=== PATIENT | male | born 1960 | race Two or more races ===

== ENCOUNTER 2025-01-16 13:28 | Inpatient (IN) | payer OTHER ==
[~2025-01-16] VITALS: Ht 165.1 cm; Wt 51.4 kg
[2025-01-16 14:14] LABS: Basophils # (auto) 0 10 ^3/uL (0-0.2); Basophils % (auto) 0.3 % (0.0-2.0); Eosinophils # (auto) 0 10 ^3/uL (0-0.8); Hematocrit 40.8 % (41.0-53.0); Hemoglobin 13.9 g/dL (13.5-17.5); Lymphocytes # (auto) 0.8 10 ^3/uL (0.4-5.4); Lymphocytes % (auto) 8.1 % (10.0-50.0); Mean Corpuscular Hemoglobin 29.6 pg (28.0-32.0); Monocytes # (auto) 0.5 10 ^3/uL (0-1.3); Monocytes % (auto) 4.9 % (0.0-12.0); Neutrophils # (auto) 8.1 10 ^3/uL (1.6-8.6); Neutrophils % (auto) 86.7 % (37.0-80.0); Platelet Count (auto) 157 10^3/uL (140-450); Red Blood Cells 4.68 10^6/uL (4.5-5.90); Red Cell Distribution Width 13.6 % (11.8-14.3); White Blood Cell 9.3 10^3/uL (4.4-10.8)
[2025-01-16 14:31] LABS: Alanine Aminotransferase 18 U/L (7-40); Alkaline Phosphatase 79 U/L (46-116); Anion Gap 10 (5-15); Aspartate Aminotransferase 19 U/L (13-40); BUN/Creatinine Ratio 10.9 (10.0-20.0); Blood Urea Nitrogen 10 mg/dL (9-23); Calcium 9.1 mg/dL (8.7-10.4); Carbon Dioxide 24 mmol/L (20-31); Chloride 104 mmol/L (98-107); Sodium 138 mmol/L (136-145); Total Protein 6.7 g/dL (5.7-8.2)
[2025-01-16 14:32] LABS: Albumin 4.2 g/dL (3.2-4.8); Bilirubin, Total 0.7 mg/dL (0.2-1.0); Glucose 145 mg/dL (74-106); Potassium 3.5 mmol/L (3.5-5.1)
[2025-01-16 14:33] LABS: Urine Bacteria None Seen /hpf (None Seen)
[2025-01-16 14:34] LABS: Lactic Acid w/Reflex 2.1 mmol/L (0.4-2.0)
[2025-01-16 14:40] LABS: Urine Blood TRACE /uL (Negative); Urine Clarity Clear (Clear); Urine Color Light-Yellow (Yellow); Urine Protein, UAD Negative (Negative); Urine Specific Gravity 1.008 (1.001-1.035); Urine Squamous Epithelial Cell None Seen /hpf (<5); Urine Urobilinogen Normal (Negative); Urine WBC < 1 /HPF (0-3); Urine pH 5.5 (5.0-9.0)
--- NOTE | 2025-01-16 14:40 | ED.PDOC ---
Altered Mental Status HPI Comments 64y M who presents to the ED for chief complaint of syncope. - pt states she had syncopal episode earlier this AM at approx 0500 this AM while using restroom -pt states he was straining during restroom and states he got up and suddenly felt lightheaded and had syncopal and remembers only waking up on floor - pt states now in the ED, he was dehydrated yesterday and had tea last night and had diarrhea episode at approx 12 AM today - pt int the ED, is ax0x04 and otherwise denies any other symptoms Past Medical history: denies Past Surgical history: hernia repair, catatacts, hand surgery Medications: denies Allergies: denies Social History: denies ETOH, denies tobacco use, denies drug use HPI: Poor Historian. No seizure-like activity, no postictal phase, no focal neurological deficits, denies specific area of pain. This never happened before. Patient ambulatory here in the ED. FLETCHER: Syncope and collapse Normal exam, left eye blindness Normal spine exam REVIEW OF SYSTEMS: CONSTITUTIONAL: Denies acute: fever, diaphoresis, chills, generalized weakness. HEAD: Denies acute: headache, photophobia Eyes: Denies acute: Double vision, vision loss, eye pain, eye discharge. EARS: Denies acute: tinnitus, hearing loss, ear discharge, ear pain, THROAT: Denies acute: sore throat, swelling, difficulty swallowing , pain with swallowing, change in voice. NECK: Denies acute: neck pain, neck swelling, stiff neck. HEART: Denies acute : chest pain, palpitations, LUNGS: Denies acute: SOB, wheezing, cough, hemoptysis ABDOMEN: Denies acute: abdominal pain, diarrhea, melena , hematemesis, hematochezia SKIN: Denies acute: rash, redness, lesions, itchiness. EXTREMITIES: Denies acute: calf pain, numbness, tingling, weakness, denies pain in extremity. Denies acute: Low back pain. Neuro: Denies acute: focal neurological deficit, motor or sensory focal neurological deficit, tremors, seizure like activity, confusion, change in mental status, loss of bowel or bladder function, cauda equina like symptoms. : Denies acute: dysuria, hematuria, flank pain, increase in urinary frequency. PSYCH: Denies acute: hallucination, suicidal ideation, homicidal ideation. PHYSICAL EXAM: General: --mild------acute distress, awake and alert. Head: normocephalic, atraumatic. Neck: supple, trachea is midline, no swelling. Cervical spine: Palpation of the posterior midline of the cervical spine reveals no focal swelling, erythema, focal tenderness to palpation. Patient has normal range of motion. Palpation of the remainder of the thoracic and lumbar spine reveals no focal tenderness to palpation or swelling. Throat: Normal phonation. Eyes:, no erythema, no purulent discharge, no proptosis, no icterus. Heart: regular rate, regular rhythm, no significant murmur appreciated. Lungs: no apparent respiratory distress, Able to speak in full sentences. No wheezing, no rhonchi, no crackles. No stridors Clear to auscultation bilaterally. Abdomen: non tender to palpation, non distended, soft, no guarding, no rebound, + bowel sounds. Neuro: Awake, Alert, oriented to name, self, situation, follows commands GCS=15. Speech is normal. Skin: no petechia, no purpura, no cyanosis, non-pale, not jaundice. Lower extremities: --no - Pitting edema no deformity, no focal swelling, no calf TTP. Makes eye contact. moves all four extremities. Face: no apparent facial droop. Ambulating in the ED independently. Stroke: finger to nose cerebellar testing is intact. No pronator drift. 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 No nystagmus. No nuchal rigidity, Kernig's sign, Brudzinski's sign, no meningeal signs. ED COURSE: Chief Complaint: Syncope Time Seen by MD: 13:40 Reviewed Notes: Medications, Allergies Allergies: Coded Allergies: NO KNOWN ALLERGIES (Unverified , 01/16/25) Home Meds No Active Prescriptions or Reported Meds Information Source: Patient Mode of Arrival: Ambulatory EKG EKG : Pulse Rate (adult): 74 [place]: Normal Cardiac Rhythm: NSR Block: None Hypertrophy: None ST: Normal Was a procedure done? Was a procedure done?: No Differential Diagnosis (ALOC) Differential Diagnosis: Dehydration, Hypoglycemia, DKA, Encephalopathy, Meningitis, Sepsis, Hypoxemia, Seizure, Closed Head Injury, CVA, Mass Lesion, SAH, Drug Overdose, ETOH Intoxication, Heart Failure, Renal Failure, Other X-Ray, Labs, Meds, VS Vital Signs Date Time Temp Pulse Resp B/P (MAP) Pulse Ox O2 Delivery O2 Flow Rate FiO2 01/16/25 19:55 98.1 77 18 97/57 (70) 98 98.1 01/16/25 16:09 99 18 95/56 (69) 100 01/16/25 16:09 74 18 100 Room Air 01/16/25 15:36 74 01/16/25 14:09 97.4 83 17 98/56 (70) 97 97.4 Lab Test 01/16/25 17:06 01/16/25 16:00 01/16/25 15:05 01/16/25 14:33 Range/Units Troponin I High Sensitivity < 3 L < 3 L </=54 ng/L Lactic Acid Level 1.5 0.4-2.0 mmol/L Urine Color Light-yellow Yellow Urine Clarity Clear Clear Urine pH 5.5 5.0-9.0 Urine Specific [place] 1.008 1.001-1.035 Urine Protein Negative Negative Urine Ketones Negative Negative Urine Blood Trace H Negative /uL Urine Nitrite Negative Negative Urine Bilirubin Negative Negative Urine Urobilinogen Normal Negative mg/dL Urine Leukocyte Esterase Negative Negative /uL Urine RBC <1 0 - 3 /hpf Urine Microscopic WBC < 1 0-3 /HPF Urine Squamous Epithelial Cells None seen <5 /hpf Urine Bacteria None seen None Seen /hpf Urine Glucose Normal Normal mg/dL Test 01/16/25 14:03 01/16/25 14:00 Range/Units White Blood Count 9.3 4.4-10.8 10^3/uL Red Blood Count 4.68 4.5-5.90 10^6/uL Hemoglobin 13.9 13.5-17.5 g/dL Hematocrit 40.8 L 41.0-53.0 % Mean Corpuscular Volume 87.0 80.0-100.0 fL Mean Corpuscular Hemoglobin 29.6 28.0-32.0 pg Mean Corpuscular Hemoglobin Concent 34.0 32.0-36.0 g/dL Red Cell Distribution Width 13.6 11.8-14.3 % Platelet Count 157 140-450 10^3/uL Mean Platelet Volume 7.9 6.9-10.8 fL Neutrophils (%) (Auto) 86.7 H 37.0-80.0 % Lymphocytes (%) (Auto) 8.1 L 10.0-50.0 % Monocytes (%) (Auto) 4.9 0.0-12.0 % Eosinophils (%) (Auto) 0.0 0.0-7.0 % Basophils (%) (Auto) 0.3 0.0-2.0 % Neutrophils # (Auto) 8.1 1.6-8.6 10 ^3/uL Lymphocytes # (Auto) 0.8 0.4-5.4 10 ^3/uL Monocytes # (Auto) 0.5 0-1.3 10 ^3/uL Eosinophils # (Auto) 0 0-0.8 10 ^3/uL Basophils # (Auto) 0 0-0.2 10 ^3/uL Nucleated Red Blood Cells 0.0 % Sodium Level 138 136-145 mmol/L Potassium Level 3.5 3.5-5.1 mmol/L Chloride Level 104 98-107 mmol/L Carbon Dioxide Level 24 20-31 mmol/L Anion Gap 10 5-15 Blood Urea Nitrogen 10 9-23 mg/dL Creatinine 0.92 0.700-1.30 mg/dL Glomerular Filtration Rate Calc 92 >90 mL/min BUN/Creatinine Ratio 10.9 10.0-20.0 Serum Glucose 145 H 74-106 mg/dL Lactic Acid Level 2.1 *H 0.4-2.0 mmol/L Calcium Level 9.1 8.7-10.4 mg/dL Total Bilirubin 0.7 0.2-1.0 mg/dL Aspartate Amino Transferase (AST) 19 13-40 U/L Alanine Aminotransferase (ALT) 18 7-40 U/L Alkaline Phosphatase 79 46-116 U/L Troponin I High Sensitivity < 3 L </=54 ng/L Total Protein 6.7 5.7-8.2 g/dL Albumin 4.2 3.2-4.8 g/dL Lipase 30 12-53 U/L Thyroid Stimulating Hormone (TSH) 0.89 0.55-4.78 uIU/mL POC Glucose 134 H 70-106 mg/dl [place] [address] Ph: [phone] DIAGNOSTIC IMAGING Diagnostic Imaging Report : [id number] Signed PATIENT: KALINA FLETCHER ACCT: [id number] UNIT: [id number] : 1960 LOC: ER ROOM / BED: / AGE / SEX: 64 / M ADM STATUS: REG ER SERVICE 1356 ORDERING PHYSICIAN: JESSE WALTERS DO PROCEDURE(s): HWOCT - HEAD WITHOUT CONTRAST REASON: syncope and collpase ORDER NUMBER(s): [id number], ACCESSION NUMBER(s): [id number] EXAM: CT HEAD WITHOUT CONTRAST INDICATION: syncope and collpase TECHNIQUE: CT of the head without intravenous contrast. Radiation Dose Information: CT Dose: CTDI volume is 50.46 mGy. Dose-length product is 809.12 mGy*cm The dose indicators for CT are the volume Computed Tomography (CT) Dose Index (CTDIvol) and the Dose Length Product (DLP), and are measured in units of mGy and mGy-cm, respectively. These indicators are not patient dose, but values generated from the CT scanner acquisition factors. The report includes radiation exposure data for exposures received during this examination. COMPARISON: None FINDINGS: There is no evidence of acute intracranial hemorrhage, extra-axial collection, mass effect, midline shift, herniation or hydrocephalus. The ventricles, sulci and cisterns are age appropriate. The crain-white differentiation is intact. Patchy periventricular and subcortical white matter hypoattenuation is nonspecific but may be related to small vessel ischemic disease. The visualized paranasal sinuses and mastoid air cells are clear. The surrounding soft tissues and osseous structures are unremarkable. IMPRESSION: 1. No acute intracranial abnormality. ATED BY: TESS TINAJERO Jr., DO DICTATED DATE/TIME: 01/16/251505 SIGNED BY: TESS TINAJERO Jr., DO SIGNED DATE/TIME: 01/16/25 150 CC: [address] [address] Ph: [phone] DIAGNOSTIC IMAGING Diagnostic Imaging Report : [id number] Signed PATIENT: KALINA FLETCHER ACCT: [id number] UNIT: [id number] : 1960 LOC: ER ROOM / BED: / AGE / SEX: 64 / M ADM STATUS: REG ER SERVICE 1349 ORDERING PHYSICIAN: JESSE WALTERS DO PROCEDURE(s): ABPL - CT AB PEL WO CON-NO ORAL OR IV REASON: abd pain n/v ORDER NUMBER(s): [id number], ACCESSION NUMBER(s): [id number] Exam: CT CT AB PEL WO CON-NO ORAL OR IV History: abd pain n/v Comparison Study: None TECHNIQUE: Multidetector CT of the abdomen was performed from lung bases to pubic symphysis. Imaging was performed without IV contrast. Axial, coronal and sagittal multiplanar reformats were obtained from the axial data set by the technologist. Radiation Dose Information: CT Dose: CTDI volume is 5.07 mGy. Dose-length product is 237.16 mGy*cm FINDINGS: Evaluation of solid organs is limited due to lack of intravenous contrast use. Findings: Lung Bases: No acute or significant lung base finding. Normal heart size. No pleural or pericardial effusion. Liver: The liver is normal in size. No focal lesions. Gallbladder and Biliary Tree: Unremarkable Spleen: Unremarkable Pancreas: The pancreas is grossly normal in appearance. Adrenal Glands: Unremarkable Kidneys: Kidneys are grossly normal without calculi or hydronephrosis. Bladder: Grossly unremarkable for degree of distention. Bowel: The stomach is grossly normal in appearance. Small bowel and colon are normal in caliber and distribution. The appendix is not visualized; however, no secondary findings of acute appendicitis identified. Ascites: Absent Lymphadenopathy: No mesenteric, retroperitoneal or periportal lymphadenopathy. Abdominal Wall and Mesentery: 4-5 cm left inguinal hernia containing bowel Vasculature: The visualized abdominal aorta is normal in size and caliber. Evaluation of abdominal and pelvic vessels is limited due to lack of intravenous contrast. Pelvic Organs: Prostate measures 6 x 4.6 cm in his partially calcified Musculoskeletal: No aggressive focal bony lesions, acute fractures or dislocation. Soft tissues: Unremarkable IMPRESSION: 1. 4-5 cm left inguinal hernia containing bowel. Radiation optimization: All CT scans at this facility use at least one of these dose optimization techniques: automated exposure control mA and/or kV adjustment per patient size (includes targeted exams where dose is matched to clinical indication) or iterative reconstruction. ATED BY: TESS TINAJERO Jr., DO DICTATED DATE/TIME: 01/16/251539 SIGNED BY: TESS TINAJERO Jr., SIGNED DATE/TIME: 01/16/251539 CC: Time of 1ST Reevaluation: 20:18 (The case was discussed with the admitting team (HPI, physical exam, labs and diagnostic tests that were available at the time of disposition, ED course, treatment plan) on the phone. They agreed to admit the patient to their service and assume care of this patient from this point forward. CASING MIXER, Darleen.) Reevaluation 1ST: Improved Patient Education/Counseling: Diagnosis, Treatment Family Education/Counseling: No Family Present Comments Patient presented with the above HPI.---syncope and collapse---workup was initiated. patient was found with the above mentioned diagnosis. the following medications were ordered: please refer to order lists of meds and tests obtained by myself Dr. Walters. Patient ED course and VS have been stabilized. Patient has been reassessed in the ED and remained in a stable condition. Pertinent incidental findings were discussed with the patient and/or family. Patient/family voices understanding and is agreeable with plan. Patient has been observed in the ED adequate length of time to insure improvement/stability. Escalation of care considered: Consideration of escalation to observation or admission Patient was ADMITTED to the medicine team for further evaluation and treatment of their presentation. All the reports of any imaging studies that were ordered by myself were reviewed by myself. Departure 1 Departure Time of Disposition: 14:42 Impression: Primary Impression: Syncope and collapse Additional Impression: Inguinal hernia Disposition: ADMITTED INPATIENT Admit to: Tele Condition: Guarded e-Prescriptions No Active Prescriptions or Reported Meds Discharged With: Self Critical Care Note Critical Care Time?: No Heart Score Heart Score: Heart Score Response (Comments) Value History Slightly Suspicious 0 EKG Normal 0 Age >65 2 Risk Factors No known risk factors 0 Troponin Normal limit 0 Total 2 I personally scribed for JESSE WALTERS DO ([facility]) on 01/16/25 at 14:39. Electronically submitted by Shon Hernandez ([facility]). I personally scribed for JESSE WALTERS DO ([facility]) on 01/16/25 at 14:52. Electronically submitted by Shon Hernandez ([facility]). I personally scribed for JESSE WALTERS DO ([facility]) on 01/16/25 at 15:25. Electronically submitted by Shon Hernandez ([facility]). I personally scribed for JESSE WALTERS DO ([facility]) on 01/16/25 at 15:36. Electronically submitted by Shon Hernandez ([facility]). I personally scribed for JESSE WALTERS DO ([facility]) on 01/16/25 at 22:19. Electronically submitted by Shon Hernandez ([facility]). JESSE WALTERS DO Jan 16, 2025 14:39
[2025-01-16 14:42] LABS: Lipase 30 U/L (12-53)
--- NOTE | 2025-01-16 15:08 | DVH ---
EXAM: CT HEAD WITHOUT CONTRAST INDICATION: syncope and collpase TECHNIQUE: CT of the head without intravenous contrast. Radiation Dose Information: CT Dose: CTDI volume is 50.46 mGy. Dose-length product is 809.12 mGy*cm The dose indicators for CT are the volume Computed Tomography (CT) Dose Index (CTDIvol) and the Dose Length Product (DLP), and are measured in units of mGy and mGy-cm, respectively. These indicators are not patient dose, but values generated from the CT scanner acquisition factors. The report includes radiation exposure data for exposures received during this examination. COMPARISON: None FINDINGS: There is no evidence of acute intracranial hemorrhage, extra-axial collection, mass effect, midline s hift, herniation or hydrocephalus. The ventricles, sulci and cisterns are age appropriate. The crain-white differentiation is intact. Patchy periventricular and subcortical white matter hypoattenuation is nonspecific but may be related to small vessel ischemic disease. The visualized paranasal sinuses and mastoid air cells are clear. The surrounding soft tissues and osseous structures are unremarkable. IMPRESSION: 1. No acute intracranial abnormality.
--- NOTE | 2025-01-16 15:43 | DVH ---
Exam: CT CT AB PEL WO CON-NO ORAL OR IV History: abd pain n/v Comparison Study: None TECHNIQUE: Multidetector CT of the abdomen was performed from lung bases to pubic symphysis. Imaging was performed without IV contrast. Axial, coronal and sagittal multiplanar reformats were obtained fr om the axial data set by the technologist. Radiation Dose Information: CT Dose: CTDI volume is 5.07 mGy. Dose-length product is 237.16 mGy*cm FINDINGS: Evaluation of solid organs is limited due to lack of intravenous contrast use. Findings: Lung Bases: No acute or significant lung base finding. Normal heart size. No pleural or pericardial effusion. Liver: The liver is normal in size. No focal lesions. Gallbladder and Biliary Tree: Unremarkable Spleen: Unremarkable Pancreas: The pancreas is grossly normal in appearance. Adrenal Glands: Unremarkable Kidneys: Kidneys are grossly normal without calculi or hydronephrosis. Bladder: Grossly unremarkable for degree of distention. Bowel: The stomach is grossly normal in appearance. Small bowel and colon are normal in caliber and d istribution. The appendix is not visualized; however, no secondary findings of acute appendicitis id entified. Ascites: Absent Lymphadenopathy: No mesenteric, retroperitoneal or periportal lymphadenopathy. Abdominal Wall and Mesentery: 4-5 cm left inguinal hernia containing bowel Vasculature: The visualized abdominal aorta is normal in size and caliber. Evaluation of abdominal a nd pelvic vessels is limited due to lack of intravenous contrast. Pelvic Organs: Prostate measures 6 x 4.6 cm in his partially calcified Musculoskeletal: No aggressive focal bony lesions, acute fractures or dislocation. Soft tissues: Unremarkable IMPRESSION: 1. 4-5 cm left inguinal hernia containing bowel. Radiation optimization: All CT scans at this facility use at least one of these dose optimization te chniques: automated exposure control mA and/or kV adjustment per patient size (includes targeted exa ms where dose is matched to clinical indication) or iterative reconstruction.
--- NOTE | 2025-01-16 18:29 | ECG ---
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
[2025-01-16] MEDS ORDERED: ONDANSETRON HCL 4 MG/2 ML VIAL IV PRN (20:30)
[2025-01-16] MEDS ORDERED: ACETAMINOPHEN 325 MG TAB PO PRN (20:30)
[2025-01-17] VITALS (9 sets, daily range): BP systolic 96–116; BP diastolic 53–74; PULSE 54–99; RESP 16–18; TEMP 97.4–99.1; O2SAT 96–100
[2025-01-17] MEDS: SODIUM CHLORIDE 0.9% 1,000 ML IV SCH (01:45)
[2025-01-17] MEDS: FAMOTIDINE 20 MG TAB PO SCH (01:46)
--- NOTE | 2025-01-17 04:22 | DVHHP2 ---
Admitting Diagnosis: Syncope, Left inguinal hernia History of Present Illness History Source: Patient Exam Limitations: No limitations HPI Mr. Demond Jensen is a 64 yo male with known history of hernia repair, cataracts, who presents with a chief complaint of syncopal episode while using the restroom. Patient reports he felt nausea , lightheaded with associated dizziness and syncopal episode. Patient denies any head trauma. Patient states he had a similar episode at work six years ago. Patient also endorses he has some constipation intermittently denies any abdominal pain, fevers, chills, nausea, vomiting, chest pain, palpitations, dyspnea. Patient admitted for further evaluation. Home Meds Active Scripts Senna (Senna) 8.6 Mg Tab, 8.6 MG PO QPM, #30 TAB Prov:YONATAN WALTERS [place]/18/25 [facility] [place] (Blood Pressure Monitor) Monitor Kit, EA XX DAILY, #1 Check blood pressure daily in the morning to keep blood pressure 100-140/60-85 Prov:YONATAN WALTERS MD 01/18/25 Midodrine HCl (Midodrine HCl) 10 Mg Tab, 5 MG PO BID, #30 TAB Take half a tablet (5 mg ) twice a day for low blood pressure Prov:YONATAN WALTERS MD 01/18/25 Past Medical History Cardiac: No pertinent Hx Pulmonary: No pertinent Hx Central Nervous System: No pertinent Hx GI: No pertinent Hx Hemotology/Oncology: No pertinent Hx Hepatobiliary: No pertinent Hx Psychiatric: No pertinent Hx Musculoskeletal: No pertinent Hx Rheumotologic: No pertinent Hx Infectious Disease: No peritnent Hx ENT: No pertinent Hx Renal/: No pertinent Hx Endocrine: No pertinent Hx Dermatology: No pertinent Hx Past Surgical History: Hernia repair Patient Family History: Cerebrovascular accident (CVA) G8 MOTHER Smoker: No Hx (Negative) Alocohol: None Drugs: None Lives with: With family Domestic Violence: Neg Review of Systems Constitutional: No symptom reported Ears, Nose, & Throat: No symptom reported Eyes: No symptom reported Pulmonary/Respiratory: No symptom reported Cardiovascular: No symptom reported Gastrointestinal: No symptom reported Genitourinary: No symptom reported Musculoskeletal: No symptom reported Skin: No symptom reported Psychiatric: No symptom reported Endocrine: No symptom reported Hemotologic/Lymphatic: No symptom reported H&P Exam Vital Signs Vital Signs Date Time Temp Pulse Resp B/P (MAP) Pulse Ox O2 Delivery O2 Flow Rate FiO2 01/17/25 00:56 78 18 99 Room Air* 0 21 01/17/25 00:56 97.4 110/74 (86) 97.4 General Appeara: Well developed, Well nourished, Normal Appearance Head Exam: Normal inspection Neck Exam: Normal inspection, Non-tender, Normal alignment Eye Exam: bilateral eye Normal inspection, bilateral eye PERRL, bilateral eye EOMI Ear Exam: bilateral ear Auricle normal Nasal Exam: Normal inspection Mouth: Normal Inspection Pulmonary/Respiratory: Normal inspection, Normal breath sounds, Chest non- tender, Lungs clear Cardiovascular/Chest: Normal inspection, Regular rate, Normal Rhythm Peripheral Pulses: 2+ dorsalis pedis (R), 2+ dorsalis pedis (L), 2+ Radial (R), 2+ Radial (L) Abdominal Exam: Normal bowel sounds, Soft, No tenderness Rectal Exam: Deferred CIA AGENT Exam: Normal hearing, Normal speech, PERRL Neuro/Mental St: Alert, Oriented Appearance: Appropriate appearance, Appropriate insight Eye contact/ Speech: Cooperative, Good eye contact, Normal speech Thoughts/Psych: Normal thought pattern Skin Exam: Normal inspection, Normal color, Warm/dry Labs/Xrays Labs Test 01/16/25 20:50 01/16/25 17:06 01/16/25 14:33 01/16/25 14:03 Range/Units Lactic Acid Level 1.8 0.4-2.0 mmol/L Troponin I High Sensitivity < 3 L </=54 ng/L Urine Color Light-yellow Yellow Urine Clarity Clear Clear Urine pH 5.5 5.0-9.0 Urine Specific [place] 1.008 1.001-1.035 Urine Protein Negative Negative Urine Ketones Negative Negative Urine Blood Trace H Negative /uL Urine Nitrite Negative Negative Urine Bilirubin Negative Negative Urine Urobilinogen Normal Negative mg/dL Urine Leukocyte Esterase Negative Negative /uL Urine RBC <1 0 - 3 /hpf Urine Microscopic WBC < 1 0-3 /HPF Urine Squamous Epithelial Cells None seen <5 /hpf Urine Bacteria None seen None Seen /hpf Urine Glucose Normal Normal mg/dL White Blood Count 9.3 4.4-10.8 10^3/uL Red Blood Count 4.68 4.5-5.90 10^6/uL Hemoglobin 13.9 13.5-17.5 g/dL Hematocrit 40.8 L 41.0-53.0 % Mean Corpuscular Volume 87.0 80.0-100.0 fL Mean Corpuscular Hemoglobin 29.6 28.0-32.0 pg Mean Corpuscular Hemoglobin Concent 34.0 32.0-36.0 g/dL Red Cell Distribution Width 13.6 11.8-14.3 % Platelet Count 157 140-450 10^3/uL Mean Platelet Volume 7.9 6.9-10.8 fL Neutrophils (%) (Auto) 86.7 H 37.0-80.0 % Lymphocytes (%) (Auto) 8.1 L 10.0-50.0 % Monocytes (%) (Auto) 4.9 0.0-12.0 % Eosinophils (%) (Auto) 0.0 0.0-7.0 % Basophils (%) (Auto) 0.3 0.0-2.0 % Neutrophils # (Auto) 8.1 1.6-8.6 10 ^3/uL Lymphocytes # (Auto) 0.8 0.4-5.4 10 ^3/uL Monocytes # (Auto) 0.5 0-1.3 10 ^3/uL Eosinophils # (Auto) 0 0-0.8 10 ^3/uL Basophils # (Auto) 0 0-0.2 10 ^3/uL Nucleated Red Blood Cells 0.0 % Sodium Level 138 136-145 mmol/L Potassium Level 3.5 3.5-5.1 mmol/L Chloride Level 104 98-107 mmol/L Carbon Dioxide Level 24 20-31 mmol/L Anion Gap 10 5-15 Blood Urea Nitrogen 10 9-23 mg/dL Creatinine 0.92 0.700-1.30 mg/dL Glomerular Filtration Rate Calc 92 >90 mL/min BUN/Creatinine Ratio 10.9 10.0-20.0 Serum Glucose 145 H 74-106 mg/dL Calcium Level 9.1 8.7-10.4 mg/dL Total Bilirubin 0.7 0.2-1.0 mg/dL Aspartate Amino Transferase (AST) 19 13-40 U/L Alanine Aminotransferase (ALT) 18 7-40 U/L Alkaline Phosphatase 79 46-116 U/L Total Protein 6.7 5.7-8.2 g/dL Albumin 4.2 3.2-4.8 g/dL Lipase 30 12-53 U/L Thyroid Stimulating Hormone (TSH) 0.89 0.55-4.78 uIU/mL Test 01/16/25 14:00 Range/Units POC Glucose 134 H 70-106 mg/dl Assessment/Plan Problem List: (1) Syncope and collapse (2) Inguinal hernia Plan This is a 64 yo male with known history of hernia repair, cataracts who presents with syncopal episode 1. Syncope 2. Left inguinal hernia Plan Admit Telemetry Cardiology consultation, 2D echocardiogram Orthostatic blood pressures Surgical consultation IV fluids GI ppx DVT ppx Fall Precautions Discussed all above with patient in [place] who verbalizes agreement and understanding of care plan. All questions were answered. Plan discussed with: Patient, Other Code Visit Code Visit Total Time (mins): 45 Additional Comments Additional Comments Additional Comments Patient's chart is reviewed and discussed with the nurse practitioner. I agree with the nurse practitioner's evaluation, documentation, assessment and care plan as outlined. CATALINA JOHNSON Jan 17, 2025 04:22 YONATAN WALTERS MD Jan 18, 2025 14:41
[2025-01-17 07:00] LABS: Sodium 143 mmol/L (136-145)
[2025-01-17 07:01] LABS: Anion Gap 9 (5-15); Calcium 9.1 mg/dL (8.7-10.4); Carbon Dioxide 25 mmol/L (20-31)
[2025-01-17 07:04] LABS: Chloride 109 mmol/L (98-107); Potassium 3.4 mmol/L (3.5-5.1)
[2025-01-17 07:06] LABS: BUN/Creatinine Ratio 12.7 (10.0-20.0); Blood Urea Nitrogen 9 mg/dL (9-23); Glucose 97 mg/dL (74-106)
[2025-01-17 09:35] LABS: Magnesium 2.1 mg/dL (1.6-2.6)
--- NOTE | 2025-01-17 10:56 | DVH ---
Carotid Duplex Date: 01/17/2025 09:27 AM Clinical History: syncope Comparison: None Technique: Duplex Doppler evaluation of the extracranial carotid and vertebral arteries including col or Doppler and spectral/pulsed waveform analysis was performed. Findings: RIGHT SIDE: The peak systolic velocities are 79 cm/s in the distal CCA and 54 cm/s in the proximal ICA.The ICA/CC A ratio is less than 1. The external carotid artery is patent with peak systolic velocity of 94 cm/s proximally. There is appropriate antegrade flow in the right vertebral artery. LEFT SIDE: The peak systolic velocities are 81 cm/s in the distal CCA and 59 cm/s in the proximal ICA.. The ICA/ CCA ratio is less than 1. The external carotid artery is patent with peak systolic velocity of 81 cm/s proximally. There is appropriate antegrade flow in the left vertebral artery. IMPRESSION: No hemodynamically significant stenosis noted in the right carotid system. No hemodynamically significant stenosis noted in the left carotid system. Reference: Radiology 2003; 229:[id number]
[2025-01-17] MEDS: ENOXAPARIN SOD 40 MG/0.4 ML SYRINGE SC SCH (11:11)
--- NOTE | 2025-01-17 11:34 | DVHINCON2 ---
Date Seen: Jan 17, 2025 Referring Physician BREANNA Huddleston Reason for Consultation Syncope History of Present Illness This is a pleasant Lao-speaking 64-year-old male patient who presents to the emergency room status post syncopal episode. The patient reports that he had just gotten up from having a bowel movement when he went to wash his hands and suddenly began to feel dizzy. He reports that the next thing he remembers is waking up on the ground. He told his son what happened and his son brought him to the emergency room for further evaluation. Cardiology has been consulted at this time for syncope workup. Initial twelve lead electrocardiogram reveals normal sinus rhythm without any significant ST segment changes. The patient denies any cardiac symptoms. Serial troponin levels have been negative. Significant past medical history includes constipation, inguinal hernia, bilateral cataracts, and left eye blindness. Past Medical History Past medical history reviewed. No other significant than mentioned above. Past Surgical History Hernia repair Bilateral cataract removal Family History: Cerebrovascular accident (CVA) G8 MOTHER Family History Family history reviewed. Social History Denies the use of tobacco, alcohol or illicit drugs. Allergies: Coded Allergies: NO KNOWN ALLERGIES (Unverified , 01/16/25) Home Meds No Active Prescriptions or Reported Meds Home Meds Denies taking any prescribed medications Current Medications Current Medications Medications (Trade) Dose Ordered Sig/Shaq Route PRN Reason Start Time Stop Time Status Last Admin Ondansetron HCl (Zofran) 4 mg Q6HPRN PRN IV NAUSEA / VOMITING 01/16/25 20:30 Sodium Chloride 1,000 ml @ 100 mls/hr Q10H IV 01/16/25 20:30 01/17/25 01:45 Acetaminophen (Tylenol Tablet) 650 mg Q6HPRN PRN PO PAIN SCALE 1-3 OR TEMP>100.4 01/16/25 20:30 Famotidine (Pepcid Tablet) 20 mg BID PO 01/16/25 22:00 01/17/25 11:07 Enoxaparin Sodium (Lovenox) 40 mg DAILY SC 01/17/25 10:00 01/17/25 11:11 Review of Systems Constitutional: No symptom reported Ears, Nose, & Throat: No symptom reported Eyes: No symptom reported Neurological: Syncope Pulmonary/Respiratory: No symptoms reported Cardiovascular: No symptom reported Gastrointestinal: No symptom reported Genitourinary: No symptom reported Musculoskeletal: No symptom reported Skin: No symptom reported Psychiatric: No symptom reported Endocrine: No symptom reported Hematologic/Lymphatic: No symptom reported Vital Signs Vital Signs Date Time Temp Pulse Resp B/P (MAP) Pulse Ox O2 Delivery O2 Flow Rate FiO2 01/17/25 09:00 98.9 62 17 106/64 (78) 96 98.9 01/17/25 00:56 Room Air* 0 21 Physical Exam General Appearance: Cooperative. Well-developed. Well-nourished. No acute distress. Pulmonary/Respiratory: Clear, bilateral breaths sounds. Cardiovascular/Chest: Regular rate and rhythm. Peripheral Pulses: 2+ Radial (R). 2+ Radial (L). 2+ Pedal (R). 2+ Pedal (L) Abdominal Exam: Normal bowel sounds. Ankle Exam: Negative ankle edema Lower extremities: Negative lower extremity edema Neuro/Mental Status: A/OX4, coherent. Thoughts/Psych: Normal thought pattern. Appropriate mood and affect. Good judgment and insight. Appearance: No acute distress. Skin Exam: Normal inspection. Normal color. Warm and dry. Labs/Diagnostic Data Labs Test 01/17/25 05:42 01/16/25 20:50 01/16/25 17:06 01/16/25 14:33 Range/Units Sodium Level 143 # 136-145 mmol/L Potassium Level 3.4 L 3.5-5.1 mmol/L Chloride Level 109 H 98-107 mmol/L Carbon Dioxide Level 25 20-31 mmol/L Anion Gap 9 5-15 Blood Urea Nitrogen 9 9-23 mg/dL Creatinine 0.71 0.700-1.30 mg/dL Glomerular Filtration Rate Calc 101 >90 mL/min BUN/Creatinine Ratio 12.7 10.0-20.0 Serum Glucose 97 74-106 mg/dL Hemoglobin A1c 5.5 <5.7 % A1C Calcium Level 9.1 8.7-10.4 mg/dL Magnesium Level 2.1 1.6-2.6 mg/dL Triglycerides Level 42 < 150 mg/dL Cholesterol Level 117 < 200 mg/dL LDL Cholesterol 65 < 100 mg/dL HDL Cholesterol 42 40-59 mg/dL Lactic Acid Level 1.8 0.4-2.0 mmol/L Troponin I High Sensitivity < 3 L </=54 ng/L Urine Color Light-yellow Yellow Urine Clarity Clear Clear Urine pH 5.5 5.0-9.0 Urine Specific [place] 1.008 1.001-1.035 Urine Protein Negative Negative Urine Ketones Negative Negative Urine Blood Trace H Negative /uL Urine Nitrite Negative Negative Urine Bilirubin Negative Negative Urine Urobilinogen Normal Negative mg/dL Urine Leukocyte Esterase Negative Negative /uL Urine RBC <1 0 - 3 /hpf Urine Microscopic WBC < 1 0-3 /HPF Urine Squamous Epithelial Cells None seen <5 /hpf Urine Bacteria None seen None Seen /hpf Urine Glucose Normal Normal mg/dL Test 01/16/25 14:03 01/16/25 14:00 Range/Units White Blood Count 9.3 4.4-10.8 10^3/uL Red Blood Count 4.68 4.5-5.90 10^6/uL Hemoglobin 13.9 13.5-17.5 g/dL Hematocrit 40.8 L 41.0-53.0 % Mean Corpuscular Volume 87.0 80.0-100.0 fL Mean Corpuscular Hemoglobin 29.6 28.0-32.0 pg Mean Corpuscular Hemoglobin Concent 34.0 32.0-36.0 g/dL Red Cell Distribution Width 13.6 11.8-14.3 % Platelet Count 157 140-450 10^3/uL Mean Platelet Volume 7.9 6.9-10.8 fL Neutrophils (%) (Auto) 86.7 H 37.0-80.0 % Lymphocytes (%) (Auto) 8.1 L 10.0-50.0 % Monocytes (%) (Auto) 4.9 0.0-12.0 % Eosinophils (%) (Auto) 0.0 0.0-7.0 % Basophils (%) (Auto) 0.3 0.0-2.0 % Neutrophils # (Auto) 8.1 1.6-8.6 10 ^3/uL Lymphocytes # (Auto) 0.8 0.4-5.4 10 ^3/uL Monocytes # (Auto) 0.5 0-1.3 10 ^3/uL Eosinophils # (Auto) 0 0-0.8 10 ^3/uL Basophils # (Auto) 0 0-0.2 10 ^3/uL Nucleated Red Blood Cells 0.0 % Total Bilirubin 0.7 0.2-1.0 mg/dL Aspartate Amino Transferase (AST) 19 13-40 U/L Alanine Aminotransferase (ALT) 18 7-40 U/L Alkaline Phosphatase 79 46-116 U/L Total Protein 6.7 5.7-8.2 g/dL Albumin 4.2 3.2-4.8 g/dL Lipase 30 12-53 U/L Thyroid Stimulating Hormone (TSH) 0.89 0.55-4.78 uIU/mL POC Glucose 134 H 70-106 mg/dl Assessment Syncope, rule out cardiac etiology Rule out structural heart disease Hypokalemia Left inguinal hernia Plan/Recommendation We will continue with following plan/recommendations (Dr. Perkins): * Transthoracic echocardiogram to evaluate cardiac function * Bilateral carotid ultrasound * Orthostatic vital signs * Monitor and replete electrolytes as needed * Close Cardiac surveillance: Monitor for any ECG changes Thank you for allowing us to care for this patient. Please call with any questions or concerns. Critical care time spent: 44 minutes This medical document was created using an electronic medical record system with voice recognition software and computerized dictation system. Although this document has been carefully reviewed, there might still be some phonetic and typographical errors. Occasional wrong-word or ``sound-alike substitutions may have occurred due to the inherent limitations of voice recognition software. These areas are purely typographical due to imperfections of the software programs and do not reflect any compromise in the patient's medical care. Please read the chart carefully and recognize, using context, where these substitutions have occurred. Plan discussed with: Patient NYHA Physical activity limitations: NA Date of Service: Jan 17, 2025 Billing Provider: KYLEE DOTSON Cardiology Common Codes: 78399-[id number] INP/OBS CARE (High) Cardiology Consultation Codes: 30106-[id number] CONSULT <45MIN KYLEE DOTSON Jan 17, 2025 11:34
--- NOTE | 2025-01-17 15:24 | DVHINCON2 ---
Date of service: Jan 17, 2025 History of Present Illness 64 yo male who presents to hospital after experiencing a syncopal episode. Pt underwent imaging and ct scan revealed left ing hernia containing bowel. Pt d enies pain in inguinal region, denies n/v. denies obstructive symptoms. Past Medical History as mentioned in hpi Past Surgical History hernia repair Family History: Cerebrovascular accident (CVA) G8 MOTHER Allergies: Coded Allergies: NO KNOWN ALLERGIES (Unverified , 01/16/25) Home Meds No Active Prescriptions or Reported Meds Current Medications Current Medications Medications (Trade) Dose Ordered Sig/Shaq Route PRN Reason Start Time Stop Time Status Last Admin Ondansetron HCl (Zofran) 4 mg Q6HPRN PRN IV NAUSEA / VOMITING 01/16/25 20:30 Sodium Chloride 1,000 ml @ 100 mls/hr Q10H IV 01/16/25 20:30 01/17/25 01:45 Acetaminophen (Tylenol Tablet) 650 mg Q6HPRN PRN PO PAIN SCALE 1-3 OR TEMP>100.4 01/16/25 20:30 Famotidine (Pepcid Tablet) 20 mg BID PO 01/16/25 22:00 01/17/25 11:07 Enoxaparin Sodium (Lovenox) 40 mg DAILY SC 01/17/25 10:00 01/17/25 11:11 Review of Systems neg unless mentioned in hpi Vital Signs Vital Signs Date Time Temp Pulse Resp B/P (MAP) Pulse Ox O2 Delivery O2 Flow Rate FiO2 01/17/25 09:00 98.9 62 17 106/64 (78) 96 98.9 01/17/25 00:56 Room Air* 0 21 Physical Exam gen; aaox3,nad cvs; palpable pulses lung; normal effort abd; soft nd nttp, reducible lih, no r r g ext; no edema Labs/Diagnostic Data Labs Test 01/17/25 05:42 01/16/25 20:50 01/16/25 17:06 01/16/25 14:33 Range/Units Sodium Level 143 # 136-145 mmol/L Potassium Level 3.4 L 3.5-5.1 mmol/L Chloride Level 109 H 98-107 mmol/L Carbon Dioxide Level 25 20-31 mmol/L Anion Gap 9 5-15 Blood Urea Nitrogen 9 9-23 mg/dL Creatinine 0.71 0.700-1.30 mg/dL Glomerular Filtration Rate Calc 101 >90 mL/min BUN/Creatinine Ratio 12.7 10.0-20.0 Serum Glucose 97 74-106 mg/dL Hemoglobin A1c 5.5 <5.7 % A1C Calcium Level 9.1 8.7-10.4 mg/dL Magnesium Level 2.1 1.6-2.6 mg/dL Triglycerides Level 42 < 150 mg/dL Cholesterol Level 117 < 200 mg/dL LDL Cholesterol 65 < 100 mg/dL HDL Cholesterol 42 40-59 mg/dL Lactic Acid Level 1.8 0.4-2.0 mmol/L Troponin I High Sensitivity < 3 L </=54 ng/L Urine Color Light-yellow Yellow Urine Clarity Clear Clear Urine pH 5.5 5.0-9.0 Urine Specific [place] 1.008 1.001-1.035 Urine Protein Negative Negative Urine Ketones Negative Negative Urine Blood Trace H Negative /uL Urine Nitrite Negative Negative Urine Bilirubin Negative Negative Urine Urobilinogen Normal Negative mg/dL Urine Leukocyte Esterase Negative Negative /uL Urine RBC <1 0 - 3 /hpf Urine Microscopic WBC < 1 0-3 /HPF Urine Squamous Epithelial Cells None seen <5 /hpf Urine Bacteria None seen None Seen /hpf Urine Glucose Normal Normal mg/dL Test 01/16/25 14:03 01/16/25 14:00 Range/Units White Blood Count 9.3 4.4-10.8 10^3/uL Red Blood Count 4.68 4.5-5.90 10^6/uL Hemoglobin 13.9 13.5-17.5 g/dL Hematocrit 40.8 L 41.0-53.0 % Mean Corpuscular Volume 87.0 80.0-100.0 fL Mean Corpuscular Hemoglobin 29.6 28.0-32.0 pg Mean Corpuscular Hemoglobin Concent 34.0 32.0-36.0 g/dL Red Cell Distribution Width 13.6 11.8-14.3 % Platelet Count 157 140-450 10^3/uL Mean Platelet Volume 7.9 6.9-10.8 fL Neutrophils (%) (Auto) 86.7 H 37.0-80.0 % Lymphocytes (%) (Auto) 8.1 L 10.0-50.0 % Monocytes (%) (Auto) 4.9 0.0-12.0 % Eosinophils (%) (Auto) 0.0 0.0-7.0 % Basophils (%) (Auto) 0.3 0.0-2.0 % Neutrophils # (Auto) 8.1 1.6-8.6 10 ^3/uL Lymphocytes # (Auto) 0.8 0.4-5.4 10 ^3/uL Monocytes # (Auto) 0.5 0-1.3 10 ^3/uL Eosinophils # (Auto) 0 0-0.8 10 ^3/uL Basophils # (Auto) 0 0-0.2 10 ^3/uL Nucleated Red Blood Cells 0.0 % Total Bilirubin 0.7 0.2-1.0 mg/dL Aspartate Amino Transferase (AST) 19 13-40 U/L Alanine Aminotransferase (ALT) 18 7-40 U/L Alkaline Phosphatase 79 46-116 U/L Total Protein 6.7 5.7-8.2 g/dL Albumin 4.2 3.2-4.8 g/dL Lipase 30 12-53 U/L Thyroid Stimulating Hormone (TSH) 0.89 0.55-4.78 uIU/mL POC Glucose 134 H 70-106 mg/dl Assessment 64 yo male with left ing hernia Plan/Recommendation diet as abram no signs of obstruction/incarceration stool softeners/laxatives at home prn fu in office to discuss elective repair er precautions Plan discussed with: Patient DARRYN ALVAREZ MD Jan 17, 2025 15:24
--- NOTE | 2025-01-17 17:33 | DVHSR ---
APPROVED REPORT EXAM: Two-dimensional and M-mode echocardiogram with Doppler and color Doppler. Blood Pressure: 98/53 mmHg INDICATION Syncope RISK FACTORS Height: 65, Weight: 113 DIMENSIONS LVDd4.0 (3.8-5.7cm)LA (2D)5.0 (1.9-4.0cm)Aortic Root3.6 (2.0-3.7cm) LVDs2.8 (2.5-4.0cm)LA (MM) (1.9-4.0cm)Aortic Cusp Exc1.8 (1.5-2.0cm) EF (%) 59.0 (55-70%)Rt. Atrium4.0 (1.9-4.0cm)Asc. Aorta cm IVSd0.9 (0.7-1.1cm)RV (D) (1.8-2.4cm) PWd1.1 (0.7-1.1cm) Mitral Valve MitralMitral Stenosis E wave0.71m/sMV Mean GR.mmHg A wave0.55m/sMV Peak GR.mmHg E/A ratio1.32D MVAcm2 DECEL [id number] 1/2 Timems Aortic Valve Aortic ValveAortic Stenosis V10.81m/Michael Mean GR.2mmHg V20.96m/Michael Peak GR.4mmHg LVOT Diameter2.1 (1.8-2.4cm)Doppler AVA2.92cm2 AI P 1/2 Foal549.33ms Pulmonic Valve V20.82m/s Tricuspid Valve TR Velocity1.99m/s [id number] Other Information Technically limited study due to body habitus and patient position. Conclusion lvef 60% grade 1 diastolic dysfunction normal rv function left atrium enlarged no severe valve abnormaliteis noted
[2025-01-18 01:00] VITALS: BP 92/53; PULSE 67; RESP 16; TEMP 98.8; O2SAT 98
[2025-01-18 06:24] LABS: Potassium 3.6 mmol/L (3.5-5.1); Sodium 143 mmol/L (136-145)
[2025-01-18 06:25] LABS: Anion Gap 7 (5-15); Carbon Dioxide 27 mmol/L (20-31)
[2025-01-18 06:28] LABS: Calcium 8.2 mg/dL (8.7-10.4); Chloride 109 mmol/L (98-107)
[2025-01-18 06:31] LABS: BUN/Creatinine Ratio 9.9 (10.0-20.0); Glucose 96 mg/dL (74-106)
[2025-01-18 06:32] LABS: Blood Urea Nitrogen 7 mg/dL (9-23)
[2025-01-18 08:00] VITALS: PULSE 76; RESP 18
[2025-01-18 09:00] VITALS: BP 93/53; PULSE 58; RESP 18; TEMP 97.8; O2SAT 98
[2025-01-18 13:00] VITALS: BP 100/62; PULSE 63; RESP 16; TEMP 97.6; O2SAT 100
[2025-01-18 14:08] VITALS: BP_SYST 105; BP_SYST 93; BP_SYST 97; BP_DIAS 60; BP_DIAS 62; BP_DIAS 63; PULSE 61; PULSE 64; PULSE 69
[2025-01-18] MEDS ORDERED: MID10T PO (14:34)
[2025-01-18] MEDS ORDERED: BLOO1KIT54 XX (14:36)
[2025-01-18] MEDS ORDERED: SENN-105 PO (14:40)
--- NOTE | 2025-01-18 14:44 | DVHDS2 ---
Discharge Summary Date of Admission Jan 16, 2025 at 20:19 Date of Discharge: Jan 18, 2025 Labs/Diagnostic Data: Laboratory Results Test 01/18/25 05:49 01/17/25 05:42 01/16/25 20:50 01/16/25 17:06 Sodium Level 143 mmol/L (136-145) Potassium Level 3.6 mmol/L (3.5-5.1) Chloride Level 109 mmol/L (98-107) Carbon Dioxide Level 27 mmol/L (20-31) Anion Gap 7 (5-15) Blood Urea Nitrogen 7 mg/dL (9-23) Creatinine 0.71 mg/dL (0.700-1.30) Glomerular Filtration Rate Calc 101 mL/min (>90) BUN/Creatinine Ratio 9.9 (10.0-20.0) Serum Glucose 96 mg/dL (74-106) Calcium Level 8.2 mg/dL (8.7-10.4) Hemoglobin A1c 5.5 % A1C (<5.7) Magnesium Level 2.1 mg/dL (1.6-2.6) Triglycerides Level 42 mg/dL (< 150) Cholesterol Level 117 mg/dL (< 200) LDL Cholesterol 65 mg/dL (< 100) HDL Cholesterol 42 mg/dL (40-59) Lactic Acid Level 1.8 mmol/L (0.4-2.0) Thyroxine (T4) 6.8 ug/dL (4.5-12.0) Troponin I High Sensitivity < 3 ng/L (</=54) Test 01/16/25 14:33 01/16/25 14:03 01/16/25 14:00 Urine Color Light-yellow (Yellow) Urine Clarity Clear (Clear) Urine pH 5.5 (5.0-9.0) Urine Specific [place] 1.008 (1.001-1.035) Urine Protein Negative (Negative) Urine Ketones Negative (Negative) Urine Blood Trace /uL (Negative) Urine Nitrite Negative (Negative) Urine Bilirubin Negative (Negative) Urine Urobilinogen Normal mg/dL (Negative) Urine Leukocyte Esterase Negative /uL (Negative) Urine RBC <1 /hpf (0 - 3) Urine Microscopic WBC < 1 /HPF (0-3) Urine Squamous Epithelial Cells None seen /hpf (<5) Urine Bacteria None seen /hpf (None Seen) Urine Glucose Normal mg/dL (Normal) White Blood Count 9.3 10^3/uL (4.4-10.8) Red Blood Count 4.68 10^6/uL (4.5-5.90) Hemoglobin 13.9 g/dL (13.5-17.5) Hematocrit 40.8 % (41.0-53.0) Mean Corpuscular Volume 87.0 fL (80.0-100.0) Mean Corpuscular Hemoglobin 29.6 pg (28.0-32.0) Mean Corpuscular Hemoglobin Concent 34.0 g/dL (32.0-36.0) Red Cell Distribution Width 13.6 % (11.8-14.3) Platelet Count 157 10^3/uL (140-450) Mean Platelet Volume 7.9 fL (6.9-10.8) Neutrophils (%) (Auto) 86.7 % (37.0-80.0) Lymphocytes (%) (Auto) 8.1 % (10.0-50.0) Monocytes (%) (Auto) 4.9 % (0.0-12.0) Eosinophils (%) (Auto) 0.0 % (0.0-7.0) Basophils (%) (Auto) 0.3 % (0.0-2.0) Neutrophils # (Auto) 8.1 10 ^3/uL (1.6-8.6) Lymphocytes # (Auto) 0.8 10 ^3/uL (0.4-5.4) Monocytes # (Auto) 0.5 10 ^3/uL (0-1.3) Eosinophils # (Auto) 0 10 ^3/uL (0-0.8) Basophils # (Auto) 0 10 ^3/uL (0-0.2) Nucleated Red Blood Cells 0.0 % Total Bilirubin 0.7 mg/dL (0.2-1.0) Aspartate Amino Transferase (AST) 19 U/L (13-40) Alanine Aminotransferase (ALT) 18 U/L (7-40) Alkaline Phosphatase 79 U/L (46-116) Total Protein 6.7 g/dL (5.7-8.2) Albumin 4.2 g/dL (3.2-4.8) Lipase 30 U/L (12-53) Thyroid Stimulating Hormone (TSH) 0.89 uIU/mL (0.55-4.78) POC Glucose 134 mg/dl (70-106) Other Laboratory Tests 01/18/25 05:49 01/16/25 14:03 Brief Hx & Hospital Course: Mr. Demond Jensen is a 64 yo male with known history of hernia repair, cataracts, who presents with a chief complaint of syncopal episode while using the restroom. Patient reports he felt nausea , lightheaded with associated dizziness and syncopal episode. Patient denies any head trauma. Patient states he had a similar episode at work six years ago. Patient also endorses he has some constipation intermittently denies any abdominal pain, fevers, chills, nausea, vomiting, chest pain, palpitations, dyspnea. Patient admitted for further evaluation. He is admitted and evaluated by general surgery and Cardiology. Patient noted to be mildly orthostatic hypotension. Therefore patient is educated counseled via diplomatic interpreter/translator/video phone system along with the nurse at bedside regarding his hospital diagnosis, treatment he received, discharge medications, discharge instructions follow-up plan of care. Patient is advised to wear Alexandru socks as he is prescribed. He is advised to check his blood pressure daily and blood pressure monitor is also prescribed. Patient evaluated by surgery and recommended outpatient follow up for elective inguinal surgery repair. Meantime he is advised to keep his bowel soft and regular and laxatives prescribed. Otherwise given overall patient is clinically stable his symptoms have resolved and feeling better it is felt he could be safely discharged home. Patient verbalized understanding of his care plan as outlined and agree with the discharge home. Consults/Reason for consult CONSULTATION REPORT . ................................................................................ ............................................................................... Date of service: Jan 17, 2025 History of Present Illness 64 yo male who presents to hospital after experiencing a syncopal episode. Pt underwent imaging and ct scan revealed left ing hernia containing bowel. Pt denies pain in inguinal region, denies n/v. denies obstructive symptoms. Assessment 64 yo male with left ing hernia Plan/Recommendation diet as abram no signs of obstruction/incarceration stool softeners/laxatives at home prn fu in office to discuss elective repair er precautions Plan discussed with: Patient EVAN LEBLANC MD Jan 17, 2025 15:24 Operations or Procedures APPROVED REPORT EXAM: Two-dimensional and M-mode echocardiogram with Doppler and color Doppler. Blood Pressure: 98/53 mmHg INDICATION Syncope RISK FACTORS Height: 65, Weight: 113 DIMENSIONS LVDd 4.0 (3.8-5.7cm) LA (2D) 5.0 (1.9-4.0cm) Aortic Root 3.6 (2.0- 3.7cm) LVDs 2.8 (2.5-4.0cm) LA (MM) (1.9-4.0cm) Aortic Cusp Exc 1.8 (1.5- 2.0cm) EF (%) 59.0 (55-70%) Rt. Atrium 4.0 (1.9-4.0cm) Asc. Aorta cm IVSd 0.9 (0.7-1.1cm) RV (D) (1.8-2.4cm) PWd 1.1 (0.7-1.1cm) Mitral Valve Mitral Mitral Stenosis E wave 0.71m/s MV Mean GR. mmHg A wave 0.55m/s MV Peak GR. mmHg E/A ratio 1.3 2D MVA cm2 DECEL Time 219ms PRESS 1/2 Time ms Aortic Valve Aortic Valve Aortic Stenosis V1 0.81m/s AO Mean GR. 2mmHg V2 0.96m/s AO Peak GR. 4mmHg LVOT Diameter 2.1 (1.8-2.4cm) Doppler SERENA 2.92cm2 AI P 1/2 Time 507.33ms Pulmonic Valve V2 0.82m/s Tricuspid Valve TR Velocity 1.99m/s RVSP 22mmHg Other Information Technically limited study due to body habitus and patient position. Conclusion lvef 60% grade 1 diastolic dysfunction normal rv function left atrium enlarged no severe valve abnormaliteis noted SIGNED BY: BERE BHATIA MD SIGNED DATE/TIME: 01/17/25 1765 Condition at Discharge: Stable Final Diagnosis/Problems List Orthostatic hypotension, inguinal hernia requiring elective surgery Discharge Disposition: Home Discharge Instruct/Medications Diet: Consistent carbohydrate, Cardiac 2g Na,low cholest Activity: No Restrictions, As Tolerated Follow Up/Referral: Dr. Evan Leblanc General surgeon in 1-2 weeks for elective inguinal hernia surgery. With your primary medical doctor next week for blood pressure check and further management. Medications: Take the medications as prescribed New Medications: Midodrine HCl (Midodrine HCl) 10 Mg Tab 5 MG PO BID, #30 TAB Take half a tablet (5 mg ) twice a day for low blood pressure Misc. Devices (Blood Pressure Monitor) Monitor Kit EA XX DAILY, #1 Check blood pressure daily in the morning to keep blood pressure 100-140/60-85 Senna (Senna) 8.6 Mg Tab 8.6 MG PO QPM, #30 TAB Discharge Statement: "Patient was advised to return to the ER or call 911 if any headaches, dizziness, shortness of breath, chest pain, abdominal pain, bleeding, fevers, or worsening of medical condition. Patient was counseled about treatment plan, medications, possible side effects, patientverbalized understanding. All questions were answered to the best of my ability. This discharge took greater then 30 minutes in planning, reviewing documentation, counseling the patient, and discussing with other team members." ASSESSMENT ASSESSMENT Assessment Orthostatic hypotension, inguinal hernia requiring elective surgery YONATAN WALTERS MD Jan 18, 2025 14:44
[2025-01-18 17:00] VITALS: BP 104/63; PULSE 63; RESP 17; TEMP 97.5; O2SAT 99
== END 2025-01-18 20:35 | disposition home or self-care (01) | DRG 312 ==
LOC: ER 13:46 → OVERFLOW 20:19 → TELE-EAST 22:48
PROVIDERS: ADMIT Nurse Practitioner Family; ATTEND Nurse Practitioner Family
DX: I95.1 Orthostatic hypotension (principal); I08.0 Rheumatic disorders of both mitral and aortic valves; K59.00 Constipation, unspecified; E87.6 Hypokalemia; H54.62 Unqualified visual loss, left eye, normal vision right eye; K40.90 Unilateral inguinal hernia, without obstruction or gangrene, not specified as recurrent; Z82.3 Family history of stroke
CPT/HCPCS: 36415; 70450; 74176; 80048; 80053; 80061; 81001; 82962; 83036; 83605; 83690; 83735; 84436; 84443; 84484; 85025; 93005; 93306; 93886; G0378

== ENCOUNTER 2025-03-31 02:12 | Inpatient (IN) | payer MEDICARE, OTHER ==
[~2025-03-31] VITALS: Ht 165.1 cm; Wt 48.7 kg
[~2025-03-31 02:12] MED LIST: BLOO1KIT54 XX; MID10T PO; SENN-105 PO
[2025-03-31 03:43] LABS: Hematocrit 48.6 % (41.0-53.0); Hemoglobin 16.7 g/dL (13.5-17.5); Mean Corpuscular Hemoglobin 29.9 pg (28.0-32.0); Mean Corpuscular Volume 87.1 fL (80.0-100.0); Nucleated Red Blood Cells % 0.1 %
--- NOTE | 2025-03-31 03:52 | DVH ---
Exam: CT CT AB PEL WO CON-NO ORAL OR IV History: abd pain Comparison Study: CT CT AB PEL WO CON-NO ORAL OR IV on DOS: 01/16/25 Technique: Multidetector spiral CT of the abdomen was performed from lung bases to pubic symphysis. I maging was performed without IV contrast. Axial, coronal and sagittal multiplanar reformats were obta ined from the axial data set by the technologist. Radiation Dose : 1. Abdomen/Pelvis: CTDIvol 5.07 mGy, DLP 3.92 mGy*cm. Findings: Evaluation of solid organs is limited due to lack of intravenous contrast use. Lung Bases: Unremarkable. Liver: Unremarkable. Gallbladder and Biliary Tree: Unremarkable Pancreas: Unremarkable. Spleen: Unremarkable Adrenal Glands: Unremarkable Kidneys/Ureters: No urinary stone or obstruction. Bladder: Grossly unremarkable for degree of distention. Pelvic Organs: Prostatomegaly. Bowel: Significant dilation of the stomach and proximal to mid small bowel, with transition point in the left inguinal canal. The more distal small bowel is decompressed. No evidence of appendicitis. M oderate colonic stool burden. Vasculature: Unremarkable. Lymphadenopathy: No obvious adenopathy. Peritoneum: Mild pelvic ascites likely reactive to bowel obstruction. No free air or obvious fluid co llection. Abdominal Wall: Small bowel containing left inguinal hernia with transition point as above. Musculoskeletal: No acute findings. Mild degenerative change of the spine. IMPRESSION: 1. At least high-grade partial small-bowel obstruction with transition point in the left inguinal her massiel. Prominent upstream distention most significant of the stomach. Enteric decompression and furthe r follow-up are recommended. Correlate for bowel reducibility and clinical signs of incarceration. 2. Prostatomegaly. Radiation optimization: All CT scans at this facility use at least one of these dose optimization allan hniques: automated exposure control mA and/or kV adjustment per patient size (includes targeted exam s where dose is matched to clinical indication) or iterative reconstruction.
[2025-03-31 03:53] LABS: Alanine Aminotransferase 26 U/L (7-40); Albumin 5.0 g/dL (3.2-4.8); Alkaline Phosphatase 94 U/L (46-116); Anion Gap 10 (5-15); BUN/Creatinine Ratio 12.0 (10.0-20.0); Bilirubin, Total 0.8 mg/dL (0.2-1.0); Blood Urea Nitrogen 12 mg/dL (9-23); Calcium 9.5 mg/dL (8.7-10.4); Carbon Dioxide 29 mmol/L (20-31); Chloride 101 mmol/L (98-107); Glucose 130 mg/dL (74-106); Lipase 30 U/L (12-53); Potassium 3.8 mmol/L (3.5-5.1); Sodium 140 mmol/L (136-145); Total Protein 8.3 g/dL (5.7-8.2)
--- NOTE | 2025-03-31 04:08 | ED.PDOC ---
GI ASSESSMENT HPI Comments 64-YEAR-OLD MALE PRESENTS TO THE ED WITH SON CC OF LOWER ABDOMINAL PAIN X1 DAY WITH CONSTIPATION. PATIENT REPORTS HISTORY OF LEFT INGUINAL HERNIA. HE DOES NOTE SOME NAUSEA BUT NO VOMITING DENIES DIARRHEA, CP, SOB, DIFFICULTY BREATHING, FEVER OR CHILLS. REPORTS NO PAST SIGNIFICANT HISTORY. Chief Complaint: Constipation Time Seen by MD: 02:31 Reviewed Notes: Nurses Notes, Medications, Allergies Allergies: Coded Allergies: NO KNOWN ALLERGIES (Unverified , 01/16/25) Home Meds Active Scripts Senna (Senna) 8.6 Mg Tab, 8.6 MG PO QPM, #30 TAB Prov:YONATAN WALTERS MD 01/18/25 [facility] [place]. Devices (Blood Pressure Monitor) Monitor Kit, EA XX DAILY, #1 Check blood pressure daily in the morning to keep blood pressure 100-140/60-85 Prov:YONATAN WALTERS MD 01/18/25 Midodrine HCl (Midodrine HCl) 10 Mg Tab, 5 MG PO BID, #30 TAB Take half a tablet (5 mg ) twice a day for low blood pressure Prov:YONATAN WALTERS MD 01/18/25 Information Source: Patient Mode of Arrival: Ambulatory Past Medical History PAST MEDICAL HISTORY: Denies Surgical History: Denies all surgeries Family History Family History: Reviewed,noncontributory to illness Social History Smoker: Non-Smoker Alcohol: Denies ETOH Use Drugs: Denies Drug Use All Other Systems: Reviewed and Negative (see hpi) Physical Exam General Appearance: No Apparent Distress, Normal HEENT: Pharynx Normal Neck: Full Range of Motion, Non-Tender Respiratory: Lungs Clear, No Respiratory Distress, Normal Breath Sounds Cardiovascular: No Edema, No JVD, No Murmur, No Gallop, Normal Peripheral Pulses, Regular Rate/Rhythm Breast Exam: Deferred Gastrointestinal: Distended, Guarding (LEFT LOWER AND MID ABDOMEN LEFT LATERAL TO UMBILICUS), Hernia (LEFT INGUINAL), No Organomegaly, No Pulsatile Mass Genitalia: Deferred Pelvic: Deferred Rectal: Deferred Extremities: Normal range of motion, Non-tender, No pedal edema Musculoskeletal : Apperance: Normal Neurologic: Alert, No Motor Deficits, Normal Affect, Normal Mood, No Sensory Deficits Cerebellar Function: Normal Reflexes: NOT DONE Skin: Dry, Normal Color, Warm Lymphatic: No Adenopathy Was a procedure done? Was a procedure done?: No GI differential Dx Differential Diagnosis: Bowel Obstruction, Cholecystitis, Constipation, Diverticular disease, Gastritis/PUD, Gastroenteritis, GI hemorrhage, Hernia, Inflammatory BD, Ischemic Bowel X-Ray, Labs, Meds, VS Vital Signs Date Time Temp Pulse Resp B/P (MAP) Pulse Ox O2 Delivery O2 Flow Rate FiO2 03/31/25 05:45 Room Air* 0 21 03/31/25 05:45 97.5 64 19 151/89 (109) 98 97.5 03/31/25 05:16 66 19 137/91 (106) 97 03/31/25 05:16 66 19 97 Room Air 03/31/25 04:03 97.8 76 14 120/73 (89) 98 97.8 03/31/25 02:18 97.5 60 20 126/78 100 97.5 Lab Test 03/31/25 05:33 03/31/25 02:49 Range/Units Lactic Acid Level 1.1 0.4-2.0 mmol/L White Blood Count 10.1 4.4-10.8 10^3/uL Red Blood Count 5.58 4.5-5.90 10^6/uL Hemoglobin 16.7 13.5-17.5 g/dL Hematocrit 48.6 41.0-53.0 % Mean Corpuscular Volume 87.1 80.0-100.0 fL Mean Corpuscular Hemoglobin 29.9 28.0-32.0 pg Mean Corpuscular Hemoglobin Concent 34.3 32.0-36.0 g/dL Red Cell Distribution Width 14.2 11.8-14.3 % Platelet Count 243 140-450 10^3/uL Mean Platelet Volume 7.9 6.9-10.8 fL Neutrophils (%) (Auto) 82.4 H 37.0-80.0 % Lymphocytes (%) (Auto) 13.0 10.0-50.0 % Monocytes (%) (Auto) 4.1 0.0-12.0 % Eosinophils (%) (Auto) 0.2 0.0-7.0 % Basophils (%) (Auto) 0.3 0.0-2.0 % Neutrophils # (Auto) 8.4 1.6-8.6 10 ^3/uL Lymphocytes # (Auto) 1.3 0.4-5.4 10 ^3/uL Monocytes # (Auto) 0.4 0-1.3 10 ^3/uL Eosinophils # (Auto) 0 0-0.8 10 ^3/uL Basophils # (Auto) 0 0-0.2 10 ^3/uL Nucleated Red Blood Cells 0.1 % Prothrombin Time 11.1 9.3-11.8 sec Prothrombin Time INR 1.05 0.9-1.15 Activated Partial Thromboplast Time 29.7 24.5-34.5 SEC Sodium Level 140 136-145 mmol/L Potassium Level 3.8 3.5-5.1 mmol/L Chloride Level 101 98-107 mmol/L Carbon Dioxide Level 29 20-31 mmol/L Anion Gap 10 5-15 Blood Urea Nitrogen 12 9-23 mg/dL Creatinine 1.00 0.700-1.30 mg/dL Glomerular Filtration Rate Calc 83 >90 mL/min BUN/Creatinine Ratio 12.0 10.0-20.0 Serum Glucose 130 H 74-106 mg/dL Calcium Level 9.5 8.7-10.4 mg/dL Total Bilirubin 0.8 0.2-1.0 mg/dL Aspartate Amino Transferase (AST) 28 13-40 U/L Alanine Aminotransferase (ALT) 26 7-40 U/L Alkaline Phosphatase 94 46-116 U/L Total Protein 8.3 H 5.7-8.2 g/dL Albumin 5.0 H 3.2-4.8 g/dL Lipase 30 12-53 U/L Current Medications Medications (Trade) Dose Ordered Sig/Shaq Route Start Time Stop Time Status Last Admin Ondansetron HCl (Zofran) 4 mg ONCE ONCE IV 03/31/25 04:30 03/31/25 04:31 DC 03/31/25 05:16 Sodium Chloride 1,000 ml @ 150 mls/hr Q6H40M ONCE IV 03/31/25 04:30 03/31/25 08:28 DC 03/31/25 05:08 X-Ray, Labs, Meds, VS Comment CT ABD IMPRESSION: 1. At least high-grade partial small-bowel obstruction with transition point in the left inguinal hernia. Prominent upstream distention most significant of the stomach. Enteric decompression and further follow-up are recommended. Correlate for bowel reducibility and clinical signs of incarceration. 2. Prostatomegaly. Attempt to reduce patient's hernia left inguinal on successful patient tolerated well. We will admit for high grade partial small bowel obstruction and left inguinal hernia. CBC, CMP within normal limits pending lactic acid. Orders put in for choice. Surgical consult placed. Pending lactic acid. CBC and CMP within normal limits. NG tube ordered. Consult with surgery Dr. GUERRERO. Time of 1ST Reevaluation: 02:45 Reevaluation 1ST: Unchanged Time of 2ND Reevaluation: 04:12 Reevaluation 2ND: Improved Patient Education/Counseling: Diagnosis, Treatment, Prognosis, Need For Follow Up Family Education/Counseling: Diagnosis, Treatment, Prognosis, Need For Follow Up SEPSIS Sepsis Screen Date sepsis recognized/suspect: Mar 31, 2025 Time Sepsis recognized/suspect: 221 Recent Procedure: No On Antibiotic Therapy: No Respiratory Rate >20: No Heart Rate >90: No Temp<36 C (96.8 F) or >38.3 C: No SBP <90 or MAP <65 mmHG: No New Acute Mental Status Change: No Is the patient on CPAP, BIPAP,: No Physician Orders Ct Ab Pel Wo Con-No Oral Or Iv (03/31/25 02:35) * Surgical Consult (03/31/25 ) Place Ng (03/31/25 05:37) Npo (Nothing By Mouth) Diet (03/31/25 Breakfast) Vital Signs Date Time Temp Pulse Resp B/P (MAP) Pulse Ox O2 Delivery O2 Flow Rate FiO2 03/31/25 05:45 Room Air* 0 21 03/31/25 05:45 97.5 64 19 151/89 (109) 98 97.5 03/31/25 05:16 66 19 137/91 (106) 97 03/31/25 05:16 66 19 97 Room Air 03/31/25 04:03 97.8 76 14 120/73 (89) 98 97.8 03/31/25 02:18 97.5 60 20 126/78 100 97.5 Laboratory Tests Test 03/31/25 02:49 03/31/25 05:33 White Blood Count 10.1 10^3/uL (4.4-10.8) Lactic Acid Level 1.1 mmol/L (0.4-2.0) Departure 1 Departure Time of Disposition: 04:10 Impression: Primary Impression: Small bowel obstruction Additional Impression: Left inguinal hernia Disposition: ADMITTED INPATIENT Condition: Stable Discharged With: Relative, Other (son) Critical Care Note Critical Care Time?: No Stability Stability form required: SALUD Stoner Mar 31, 2025 04:08
[2025-03-31] MEDS: SODIUM CHLORIDE 0.9% 1,000 ML IV ONE (05:08)
[2025-03-31] MEDS: ONDANSETRON HCL 4 MG/2 ML VIAL IV ONE (05:16)
[2025-03-31] MEDS: MORPHINE SULFATE INJ 2 MG/ml SYRG IV ONE (05:17)
[2025-03-31 06:22] LABS: INR 1.05 (0.9-1.15); Partial Thromboplastin Time 29.7 SEC (24.5-34.5); Prothrombin Time 11.1 sec (9.3-11.8)
[2025-03-31] MEDS ORDERED: DEXTROSE (50%) 50ML SYRG IV PRN (06:30)
[2025-03-31] MEDS ORDERED: MORPHINE SULFATE INJ 2 MG/ml SYRG IV PRN ×2 (06:30)
[2025-03-31] MEDS ORDERED: NITROGLYCERIN 0.4 MG SL TAB SL PRN (06:30)
[2025-03-31] MEDS ORDERED: ONDANSETRON HCL 4 MG/2 ML VIAL IV PRN (06:30)
--- NOTE | 2025-03-31 06:44 | DVHHP2 ---
ROBI DIGGS PHOTOGRAPHY AND PRINTS CURATOR 03/31/25 0644: History of Present Illness Reason for Visit: Constipation History of Present Illness 64-year-old male past medical history of left inguinal hernia presents with complaints constipation and 5 days. Patient also endorsing abdominal pain. Patient states last bowel movement was morning. Bowel movement was small. During the emergency department evaluation CBC is unremarkable. CMP is unremarkable. Lactic acid 1.1. CT of the abdomen and pelvis impression reads high-grade partial small bowel obstruction with transition point in the left inguinal hernia. Prominent upstream distention most significant of the stomach. Enteric decompression and further follow up are recommended. Correlate for bowel produce ability and clinical signs of incarceration. Prostatomegaly. At this time patient denies fevers, chills, dizziness, shortness of breath, chest pain, palpitations, nausea, vomiting, hematemesis, hematochezia, melena. No previous cardiac history. GI: Other (hernia) Smoke: No ALCOHOL: none Drugs: None Lives: with Family Review of Systems Constitutional: No: Fever, Chills, Sweats, Weakness, Malaise, Other Eyes: No: Pain, Vision change, Conjunctivae inflammation, Eyelid inflammation, Other, Redness ENT: No: Ear pain, Ear discharge, Nose pain, Nose discharge, Nose congestion, Mouth pain, Mouth swelling, Throat pain, Throat swelling, Other Respiratory: No: Cough, Dry, Shortness of breath, SOB with excertion, Wheezing, Hemoptysis, Pleuritic Pain, Sputum, Wheezing, Other Cardiovascular: No: Chest Pain, Palpitations, Orthopnea, Paroxysmal Noc. Dyspnea, Edema, Lt Headedness, Other Gastrointestinal: Abdominal Pain, Constipation; No: Nausea, Vomiting, Diarrhea, Melena, Hematochezia, Other Genitourinary: No Dysuria, No Frequency, No Incontinence, No Hematuria, No Retention, No Other Musculoskeletal: No: other, neck pain, shoulder pain, arm pain, back pain, hand pain, leg pain, foot pain Skin: No: Rash, Lesions, Jaundice, Bruising, Other Neurological: No: Weakness, Numbness, Incoordination, Change in speech, Confusion, Seizures, Other Allergies: Coded Allergies: NO KNOWN ALLERGIES (Unverified , 01/16/25) Exam Vital Signs Vital Signs Date Time Temp Pulse Resp B/P (MAP) Pulse Ox O2 Delivery O2 Flow Rate FiO2 03/31/25 05:45 Room Air* 0 21 03/31/25 05:45 97.5 64 19 151/89 (109) 98 97.5 General Appearance: Alert, Oriented X3, Cooperative, moderate distress HEENT: Atraumatic, PERRLA, EOMI Respiratory: Clear to auscultation, Normal air movement Cardiovascular: Regular rate, Normal S1, Normal S2 Abdominal: Other (Abdomen firm. Diffuse tenderness left lower quadrant) Extremities: No clubbing, No cyanosis, No edema Skin: No rashes, No breakdown Neuro: Normal gait, Normal speech, Strength at 5/5 X4 ext Psych/Mental Status: Mental status NL, Mood NL Labs/Xrays Labs Test 03/31/25 05:33 03/31/25 02:49 Range/Units Lactic Acid Level 1.1 0.4-2.0 mmol/L White Blood Count 10.1 4.4-10.8 10^3/uL Red Blood Count 5.58 4.5-5.90 10^6/uL Hemoglobin 16.7 13.5-17.5 g/dL Hematocrit 48.6 41.0-53.0 % Mean Corpuscular Volume 87.1 80.0-100.0 fL Mean Corpuscular Hemoglobin 29.9 28.0-32.0 pg Mean Corpuscular Hemoglobin Concent 34.3 32.0-36.0 g/dL Red Cell Distribution Width 14.2 11.8-14.3 % Platelet Count 243 140-450 10^3/uL Mean Platelet Volume 7.9 6.9-10.8 fL Neutrophils (%) (Auto) 82.4 H 37.0-80.0 % Lymphocytes (%) (Auto) 13.0 10.0-50.0 % Monocytes (%) (Auto) 4.1 0.0-12.0 % Eosinophils (%) (Auto) 0.2 0.0-7.0 % Basophils (%) (Auto) 0.3 0.0-2.0 % Neutrophils # (Auto) 8.4 1.6-8.6 10 ^3/uL Lymphocytes # (Auto) 1.3 0.4-5.4 10 ^3/uL Monocytes # (Auto) 0.4 0-1.3 10 ^3/uL Eosinophils # (Auto) 0 0-0.8 10 ^3/uL Basophils # (Auto) 0 0-0.2 10 ^3/uL Nucleated Red Blood Cells 0.1 % Prothrombin Time 11.1 9.3-11.8 sec Prothrombin Time INR 1.05 0.9-1.15 Activated Partial Thromboplast Time 29.7 24.5-34.5 SEC Sodium Level 140 136-145 mmol/L Potassium Level 3.8 3.5-5.1 mmol/L Chloride Level 101 98-107 mmol/L Carbon Dioxide Level 29 20-31 mmol/L Anion Gap 10 5-15 Blood Urea Nitrogen 12 9-23 mg/dL Creatinine 1.00 0.700-1.30 mg/dL Glomerular Filtration Rate Calc 83 >90 mL/min BUN/Creatinine Ratio 12.0 10.0-20.0 Serum Glucose 130 H 74-106 mg/dL Calcium Level 9.5 8.7-10.4 mg/dL Total Bilirubin 0.8 0.2-1.0 mg/dL Aspartate Amino Transferase (AST) 28 13-40 U/L Alanine Aminotransferase (ALT) 26 7-40 U/L Alkaline Phosphatase 94 46-116 U/L Total Protein 8.3 H 5.7-8.2 g/dL Albumin 5.0 H 3.2-4.8 g/dL Lipase 30 12-53 U/L SEPSIS Sepsis Screen Date sepsis recognized/suspect: Mar 31, 2025 Time Sepsis recognized/suspect: 0545 Recent Procedure: No On Antibiotic Therapy: No Respiratory Rate >20: No Heart Rate >90: No Temp<36 C (96.8 F) or >38.3 C: No SBP <90 or MAP <65 mmHG: No New Acute Mental Status Change: No Is the patient on CPAP, BIPAP,: No Physician Orders Ct Ab Pel Wo Con-No Oral Or Iv (03/31/25 02:35) Urinalysis (03/31/25 02:35) Sodium Chloride 0.9% (03/31/25 04:30) * Surgical Consult (03/31/25 ) Place Ng (03/31/25 05:37) Npo (Nothing By Mouth) Diet (03/31/25 Breakfast) Chest Xray 1 View (03/31/25 06:28) Admit (03/31/25 06:21) Code Status (03/31/25 06:21) Vital Signs .PER UNIT PROTOCOL (03/31/25 06:21) Review Orders With Adm.Md (03/31/25 06:21) Encourage Activity As Tolerate (03/31/25 06:) Sodium Chloride 0.9% (03/31/25 06:30) Oxygen By Face Mask (03/31/25 06:21) Notify Md Of Changes From Base (03/31/25 06:21) Advance Directive (03/31/25 06:21) Basic Metabolic Panel (04/01/25 05:00) Basic Metabolic Panel (04/02/25 05:00) Basic Metabolic Panel (04/03/25 05:00) Basic Metabolic Panel (04/04/25 05:00) Basic Metabolic Panel (04/05/25 05:00) Complete Blood Count (04/01/25 05:00) Complete Blood Count (04/02/25 05:00) Complete Blood Count (04/03/25 05:00) Complete Blood Count (04/04/25 05:00) Complete Blood Count (04/05/25 05:00) Patient Condition (03/31/25 06:21) Allergies (03/31/25 06:21) Ondansetron Hcl (Zofran) (03/31/25 06:30) Morphine 2mg Iv Q4hprn (03/31/25 06:30) Lovenox 40mg (03/31/25 10:00) Sequential Compression Device (03/31/25 ) Nitroglycerin Sublingual (Ntrostat Subli (03/31/25 06:30) Morphine Sulfate Injection (03/31/25 06:30) Stat Ekg For Chest Pain (03/31/25 06:21) Notify Md Of Changes From Base (03/31/25 06:21) Litigation Specialist For 24 Hours (03/31/25 06:21) Emergency Dysrhythmia Protocol (03/31/25:) Rhythm Strips Once Every Shift (03/31/25 06:21) Oxygen By Nasal Cannula (03/31/25 06:21) Glucose Blood (Accu-Chek Comfort Curve T (03/31/25 12:00) Mild Sliding Scale Npo - Q6hr (03/31/25 12:00) Dextrose 50% Syringe (03/31/25 06:30) Ng To Lis (03/31/25 06:21) Zosyn Extended Infusion (03/31/25 14:00) Vital Signs Date Time Temp Pulse Resp B/P (MAP) Pulse Ox O2 Delivery O2 Flow Rate FiO2 03/31/25 05:45 Room Air* 0 21 03/31/25 05:45 97.5 64 19 151/89 (109) 98 97.5 03/31/25 05:16 66 19 137/91 (106) 97 03/31/25 05:16 66 19 97 Room Air 03/31/25 04:03 97.8 76 14 120/73 (89) 98 97.8 03/31/25 02:18 97.5 60 20 126/78 100 97.5 Laboratory Tests Test 03/31/25 02:49 03/31/25 05:33 White Blood Count 10.1 10^3/uL (4.4-10.8) Lactic Acid Level 1.1 mmol/L (0.4-2.0) Medications Medications Dose Ordered Sig/Shaq Route Start Time Stop Time Status Last Admin Dose Admin Ondansetron HCl 4 mg ONCE ONCE IV 03/31/25 04:30 03/31/25 04:31 DC 03/31/25 05:16 4 MG Sodium Chloride 1,000 ml @ 150 mls/hr Q6H40M ONCE IV 03/31/25 04:30 03/31/25 11:09 03/31/25 05:08 150 MLS/HR Assessment/Plan Assessment/Plan High-grade small-bowel obstruction Incarcerated left inguinal hernia Plan Admit medical floor General surgeon consult per the emergency department. NPO diet NGT to LIS IVF Blood glucose checks to prevent hypoglycemia Prophylactic ABX GI ppx Protonix DVT PPX Lovenox Plan discussed with: Patient My Orders Orders - ROBI DIGGS NP Procedure Category Date Status Time Admit ADMIT 03/31/25 Transmitted 06:21 Code Status CODE 03/31/25 Transmitted 06:21 Vital Signs SHEILA 03/31/25 Transmitted 06:21 Review Orders With SHEILA 03/31/25 Transmitted Adm. 06:21 Encourage Activity As SHEILA 03/31/25 Transmitted Tolerate 06:21 Sodium Chloride 0.9% PHA 03/31/25 Transmitted 06:30 Oxygen By Face Mask RT 03/31/25 Transmitted 06:21 Notify Md Of Changes [facility] 03/31/25 Transmitted From Base 06:21 Advance Directive [facility] 03/31/25 Transmitted 06:21 Basic Metabolic Panel LAB 04/01/25 Verified 05:00 Basic Metabolic Panel LAB 04/02/25 Verified 05:00 Basic Metabolic Panel LAB 04/03/25 Verified 05:00 Basic Metabolic Panel LAB 04/04/25 Verified 05:00 Basic Metabolic Panel LAB 04/05/25 Verified 05:00 Complete Blood Count LAB 04/01/25 Verified 05:00 Complete Blood Count LAB 04/02/25 Verified 05:00 Complete Blood Count LAB 04/03/25 Verified 05:00 Complete Blood Count LAB 04/04/25 Verified 05:00 Complete Blood Count LAB 04/05/25 Verified 05:00 Patient Condition ORDERS 03/31/25 Transmitted 06:21 Allergies [facility] 03/31/25 Transmitted 06:21 Ondansetron Hcl [facility] 03/31/25 Transmitted (Zofran) 06:30 Morphine 2mg Iv Q4hprn [facility] 03/31/25 Transmitted 06:30 Lovenox 40mg [facility] 03/31/25 Transmitted 10:00 Sequential [facility] 03/31/25 Transmitted Compression Device Nitroglycerin [facility] 03/31/25 Transmitted Sublingual (Ntrostat 06:30 Morphine Sulfate [facility] 03/31/25 Transmitted Injection 06:30 Stat Ekg For Chest [facility] 03/31/25 Transmitted Pain 06:21 Notify Of Changes [facility] 03/31/25 Transmitted From Base 06:21 Litigation Specialist For [facility] 03/31/25 Transmitted 24 Hours 06:21 Emergency Dysrhythmia [facility] 03/31/25 Transmitted Protocol 06:21 Rhythm Strips Once [facility] 03/31/25 Transmitted Every Shift 06:21 Oxygen By Nasal RT 03/31/25 Transmitted Cannula 06:21 Glucose Blood [facility] 03/31/25 Transmitted (Accu-Chek Comfort 12:00 Mild Sliding Scale PH[facility] 03/31/25 Transmitted Npo - Q6hr 12:00 Dextrose 50% Syringe [facility] 03/31/25 Transmitted 06:30 Ng To Lis [facility] 03/31/25 Transmitted 06:21 Zosyn Extended [facility] 03/31/25 Transmitted Infusion 14:00 Date of Service: Mar 31, 2025 Billing Provider: YONATAN WALTERS MD Common Visit Codes: NOT BILLABLE YONATAN WALTERS MD 03/31/251920: Review of Systems Allergies: Coded Allergies: NO KNOWN ALLERGIES (Unverified , 01/16/25) Additional Comments Additional Comments Additional Comments Patient's chart is reviewed and discussed with the nurse practitioner. Patient is seen and evaluated by me earlier today. I agree with the nurse practitioner's evaluation, documentation, assessment and care plan as outlined ROBI DIGGS NP Mar 31, 2025 06:44 YONATAN WALTERS MD Mar 31, 2025 19:21
[2025-03-31] MEDS: SODIUM CHLORIDE 0.9% 1,000 ML IV SCH ×2 (06:49→08:47)
--- NOTE | 2025-03-31 07:02 | DVH ---
CHEST RADIOGRAPH Indication: NGT placement verification Technique: Single frontal view of the chest was obtained COMPARISON: None FINDINGS: Lines and Tubes: Enteric catheter terminates beyond the inferior margin of the image, presumably with in the gastric lumen. Lungs: Clear Pleura: No effusion. No pneumothorax. Cardiomediastinal contours: Unremarkable Bones: Unremarkable IMPRESSION: 1. No acute disease. 2. Enteric catheter as above.
[2025-03-31] MEDS: SODIUM CHLORIDE 0.9% 500 ML IV ONE (08:32)
[2025-03-31] MEDS: ENOXAPARIN SOD 40 MG/0.4 ML SYRINGE SC SCH (08:32)
--- NOTE | 2025-03-31 10:35 | DVHINCON2 ---
Date of service: Mar 31, 2025 History of Present Illness Patient is a 64-year-old male with a history of left inguinal hernia who was scheduled to have an outpatient elective surgery when he suddenly developed constipation and abdominal pain for the past five days. Patient denies any fevers, chills, nausea or vomiting. History was obtained from his son was at bedside. Past Medical History None Past Surgical History None Family History: Cerebrovascular accident (CVA) G8 MOTHER Family History Noncontributory Social History No alcohol, tobacco, IV drug use Allergies: Coded Allergies: NO KNOWN ALLERGIES (Unverified , 01/16/25) Home Meds Active Scripts Senna (Senna) 8.6 Mg Tab, 8.6 MG PO QPM, #30 TAB Prov:YONATAN WALTERS MD 01/18/25 [facility]. Devices (Blood Pressure Monitor) Monitor Kit, EA XX DAILY, #1 Check blood pressure daily in the morning to keep blood pressure 100-140/60-85 Prov:YONATAN WALTERS MD 01/18/25 Midodrine HCl (Midodrine HCl) 10 Mg Tab, 5 MG PO BID, #30 TAB Take half a tablet (5 mg ) twice a day for low blood pressure Prov:YONATAN WALTERS MD 01/18/25 Current Medications Current Medications Medications (Trade) Dose Ordered Sig/Shaq Route PRN Reason Start Time Stop Time Status Last Admin Sodium Chloride 1,000 ml @ 75 mls/hr [id number] IV 03/31/25 06:30 03/31/25 08:28 DC 03/31/25 06:49 Ondansetron HCl (Zofran) 4 mg Q4HP PRN IV NAUSEA / VOMITING 03/31/25 06:30 Morphine Sulfate 2 mg Q4HPRN PRN IV SEVERE PAIN (7-10 PAIN SCALE) 03/31/25 06:30 Enoxaparin Sodium (Lovenox) 40 mg DAILY SC 03/31/25 10:00 Nitroglycerin (Ntrostat Sublingual) 0.4 mg Q5MINP PRN SL FOR CHEST PAIN 03/31/25 06:30 Morphine Sulfate 2 mg Q30M PRN IV FOR CHEST PAIN 03/31/25 06:30 Diagnostic Test (Pha) (Accu-Chek Comfort Curve T) 1 strip Q6HR 03/31/25 12:00 Insulin Human Regular (InsuLIN R) Q6HR SC 03/31/25 12:00 Dextrose 50 ml UD PRN IV Blood Sugar LESS THAN 60 03/31/25 06:30 Piperacillin Sod/ Tazobactam Sod 100 ml @ 100 mls/hr Q8H IV 03/31/25 14:00 Sodium Chloride 1,000 ml @ 100 mls/hr Q10H IV 03/31/25 08:30 03/31/25 08:47 Vital Signs Vital Signs Date Time Temp Pulse Resp B/P (MAP) Pulse Ox O2 Delivery O2 Flow Rate FiO2 03/31/25 09:00 97.3 69 17 117/73 (88) 98 97.3 03/31/25 08:34 Room Air* 0 21 Physical Exam GEN: Elderly male in no acute distress. Alert. HEENT: Normocephalic atraumatic. Moist mucous membranes. Anicteric sclerae. CV: RRR Respiratory: CTAB ABD: Soft. Nontender very minimal distention. There was a easily reducible left inguinal hernia without tenderness to palpation. CT of the abdomen and pelvis: Significant dilation of the stomach and proximal to mid small bowel with transition point in the left inguinal hernia. Labs/Diagnostic Data Labs Test 03/31/25 05:33 03/31/25 02:49 Range/Units Lactic Acid Level 1.1 0.4-2.0 mmol/L White Blood Count 10.1 4.4-10.8 10^3/uL Red Blood Count 5.58 4.5-5.90 10^6/uL Hemoglobin 16.7 13.5-17.5 g/dL Hematocrit 48.6 41.0-53.0 % Mean Corpuscular Volume 87.1 80.0-100.0 fL Mean Corpuscular Hemoglobin 29.9 28.0-32.0 pg Mean Corpuscular Hemoglobin Concent 34.3 32.0-36.0 g/dL Red Cell Distribution Width 14.2 11.8-14.3 % Platelet Count 243 140-450 10^3/uL Mean Platelet Volume 7.9 6.9-10.8 fL Neutrophils (%) (Auto) 82.4 H 37.0-80.0 % Lymphocytes (%) (Auto) 13.0 10.0-50.0 % Monocytes (%) (Auto) 4.1 0.0-12.0 % Eosinophils (%) (Auto) 0.2 0.0-7.0 % Basophils (%) (Auto) 0.3 0.0-2.0 % Neutrophils # (Auto) 8.4 1.6-8.6 10 ^3/uL Lymphocytes # (Auto) 1.3 0.4-5.4 10 ^3/uL Monocytes # (Auto) 0.4 0-1.3 10 ^3/uL Eosinophils # (Auto) 0 0-0.8 10 ^3/uL Basophils # (Auto) 0 0-0.2 10 ^3/uL Nucleated Red Blood Cells 0.1 % Prothrombin Time 11.1 9.3-11.8 sec Prothrombin Time INR 1.05 0.9-1.15 Activated Partial Thromboplast Time 29.7 24.5-34.5 SEC Sodium Level 140 136-145 mmol/L Potassium Level 3.8 3.5-5.1 mmol/L Chloride Level 101 98-107 mmol/L Carbon Dioxide Level 29 20-31 mmol/L Anion Gap 10 5-15 Blood Urea Nitrogen 12 9-23 mg/dL Creatinine 1.00 0.700-1.30 mg/dL Glomerular Filtration Rate Calc 83 >90 mL/min BUN/Creatinine Ratio 12.0 10.0-20.0 Serum Glucose 130 H 74-106 mg/dL Calcium Level 9.5 8.7-10.4 mg/dL Total Bilirubin 0.8 0.2-1.0 mg/dL Aspartate Amino Transferase (AST) 28 13-40 U/L Alanine Aminotransferase (ALT) 26 7-40 U/L Alkaline Phosphatase 94 46-116 U/L Total Protein 8.3 H 5.7-8.2 g/dL Albumin 5.0 H 3.2-4.8 g/dL Lipase 30 12-53 U/L Assessment 1. Reducible left inguinal hernia 2. Small bowel obstruction Plan/Recommendation 1. Continue with NG tube decompression 2. Small-bowel follow-through with Gastrografin. If it shows no obstruction, I recommend DC NG tube and starting clear liquid diet. Also recommend following up with his surgeon for elective left inguinal hernia repair as an outpatient. Plan discussed with: Patient, Son JEANNA GUERRERO MD Mar 31, 2025 10:35
[2025-03-31 10:59] LABS: Urine Protein, UAD Negative (Negative)
[2025-03-31] MEDS: GASTROGRAFIN 120 ML SOL ONE (11:31)
[2025-03-31] MEDS: InsuLIN REG 1unit/0.01ml Soln (100units/ml) SC SCH (12:00)
[2025-03-31] MEDS: ACCU-CHEK COMFORT CURVE STRIP VI SCH (12:00)
[2025-03-31 12:58] VITALS: BP 115/70; PULSE 59; RESP 20; TEMP 98; O2SAT 99
[2025-03-31] MEDS: PIPERACILLIN-TAZOB 3.375GM 100 ML IV SCH (15:15)
--- NOTE | 2025-03-31 15:27 | DVH ---
Procedure: XY SMALL BOWEL SERIES-W GASTROGRA Exam Date: 03/31/2025 02:39 PM Reason for study/Clinical History: sbo Comparison Study: None Technique: Single contrast small bowel series performed. Findings: Initial assistant sales center manager view of the abdomen and pelvis appears demonstrates no acute process. Contrast is identified within the colon by 45 MIN. This represents a normal small bowel transit time . Small bowel loops are normal in size. Normal mucosal pattern. No evidence of small bowel obstructi on, stricture, or mucosal abnormality. The terminal ileum is well visualized and is unremarkable. IMPRESSION: Normal small bowel series. END IMPRESSION:
[2025-03-31 17:10] VITALS: BP 114/80; PULSE 60; RESP 20; TEMP 98.8; O2SAT 99
[2025-03-31 19:30] VITALS: PULSE 59; RESP 16; O2SAT 100
[2025-03-31 21:00] VITALS: BP 122/70; PULSE 49; RESP 17; TEMP 97.7; O2SAT 100
[2025-04-01 01:00] VITALS: BP 118/68; PULSE 53; RESP 17; TEMP 97.7; O2SAT 97
[2025-04-01 05:00] VITALS: BP 109/70; PULSE 58; RESP 17; TEMP 97.8; O2SAT 100
[2025-04-01 06:40] LABS: Hematocrit 44.0 % (41.0-53.0); Hemoglobin 14.8 g/dL (13.5-17.5); Mean Corpuscular Hemoglobin 29.9 pg (28.0-32.0); Mean Corpuscular Volume 89.1 fL (80.0-100.0); Nucleated Red Blood Cells % 0.2 %
[2025-04-01 06:56] LABS: Anion Gap 9 (5-15); Carbon Dioxide 25 mmol/L (20-31)
[2025-04-01 06:58] LABS: Calcium 8.5 mg/dL (8.7-10.4); Chloride 114 mmol/L (98-107); Potassium 3.4 mmol/L (3.5-5.1); Sodium 148 mmol/L (136-145)
[2025-04-01 07:01] LABS: BUN/Creatinine Ratio 12.5 (10.0-20.0); Glucose 78 mg/dL (74-106)
[2025-04-01 07:07] LABS: Blood Urea Nitrogen 9 mg/dL (9-23)
[2025-04-01 08:29] VITALS: BP 106/58; PULSE 57; RESP 20; TEMP 98; O2SAT 100
--- NOTE | 2025-04-01 11:28 | DVHPN2 ---
Progress Note - Dictate Date Seen: Apr 01, 2025 Medical Necessity Reason Pt with a Central, PICC or Fol: No Subjective E: no major events o/n. no complaints. vital signs Vital Sign Date Time Temp Pulse Resp B/P (MAP) Pulse Ox O2 Delivery O2 Flow Rate FiO2 04/01/25 08:29 98.0 57 20 106/58 (74) 100 98.0 04/01/25 08:00 Room Air* 0 21 Total Intake and Output 03/31/25 03/31/25 04/01/25 15:00 23:00 07:00 Intake Total 1575 ml 0 ml Balance 1575 ml 0 ml medications Current Medications Medications Dose Ordered Sig/Shaq Route Start Time Stop Time Status Last Admin Dose Admin Ondansetron HCl 4 mg Q4HP PRN IV 03/31/25 06:30 Morphine Sulfate 2 mg Q4HPRN PRN IV 03/31/25 06:30 Enoxaparin Sodium 40 mg DAILY SC 03/31/25 10:00 Nitroglycerin 0.4 mg Q5MINP PRN SL 03/31/25 06:30 Morphine Sulfate 2 mg Q30M PRN IV 03/31/25 06:30 Diagnostic Test (Pha) 1 strip Q6HR 03/31/25 12:00 04/01/25 06:00 1 STRIP Insulin Human Regular Q6HR SC 03/31/25 12:00 Dextrose 50 ml UD PRN IV 03/31/25 06:30 Piperacillin Sod/ Tazobactam Sod 100 ml @ 100 mls/hr Q8H IV 03/31/25 14:00 04/01/25 06:00 100 MLS/HR Sodium Chloride 1,000 ml @ 100 mls/hr Q10H IV 03/31/25 08:30 04/01/25 04:30 100 MLS/HR objective GEN: NAD ABD: soft. NT/ND. reducible LIH. laboratory and microbiology Laboratory Tests 04/01/25 05:54 Test 04/01/25 05:54 Range/Units Serum Glucose 78 74-106 mg/dL Assessment/Plan A: 1. Reducible left inguinal hernia 2. resolved small bowel obstruction P: 1. stable from surgery POV. 2. recommend f/u with his private surgeon for elective LIH repair Plan discussed with: Patient JEANNA GUERRERO MD Apr 01, 2025 11:28
[2025-04-01 12:33] VITALS: BP 101/60; PULSE 59; RESP 20; TEMP 97.7; O2SAT 95
[2025-04-01] MEDS ORDERED: SENN-105 PO (17:03)
--- NOTE | 2025-04-01 17:05 | DVHDS2 ---
Discharge Summary Date of Admission Mar 31, 2025 at 06:21 Date of Discharge: Apr 01, 2025 Labs/Diagnostic Data: Laboratory Results Test 04/01/25 11:41 04/01/25 05:54 03/31/25 10:20 03/31/25 05:33 POC Glucose 65 mg/dl (70-106) White Blood Count 5.8 10^3/uL (4.4-10.8) Red Blood Count 4.94 10^6/uL (4.5-5.90) Hemoglobin 14.8 g/dL (13.5-17.5) Hematocrit 44.0 % (41.0-53.0) Mean Corpuscular Volume 89.1 fL (80.0-100.0) Mean Corpuscular Hemoglobin 29.9 pg (28.0-32.0) Mean Corpuscular Hemoglobin Concent 33.6 g/dL (32.0-36.0) Red Cell Distribution Width 14.1 % (11.8-14.3) Platelet Count 197 10^3/uL (140-450) Mean Platelet Volume 7.9 fL (6.9-10.8) Neutrophils (%) (Auto) 62.4 % (37.0-80.0) Lymphocytes (%) (Auto) 28.0 % (10.0-50.0) Monocytes (%) (Auto) 8.0 % (0.0-12.0) Eosinophils (%) (Auto) 1.3 % (0.0-7.0) Basophils (%) (Auto) 0.3 % (0.0-2.0) Neutrophils # (Auto) 3.6 10 ^3/uL (1.6-8.6) Lymphocytes # (Auto) 1.6 10 ^3/uL (0.4-5.4) Monocytes # (Auto) 0.5 10 ^3/uL (0-1.3) Eosinophils # (Auto) 0.1 10 ^3/uL (0-0.8) Basophils # (Auto) 0 10 ^3/uL (0-0.2) Nucleated Red Blood Cells 0.2 % Sodium Level 148 mmol/L (136-145) Potassium Level 3.4 mmol/L (3.5-5.1) Chloride Level 114 mmol/L (98-107) Carbon Dioxide Level 25 mmol/L (20-31) Anion Gap 9 (5-15) Blood Urea Nitrogen 9 mg/dL (9-23) Creatinine 0.72 mg/dL (0.700-1.30) Glomerular Filtration Rate Calc 101 mL/min (>90) BUN/Creatinine Ratio 12.5 (10.0-20.0) Serum Glucose 78 mg/dL (74-106) Calcium Level 8.5 mg/dL (8.7-10.4) Urine Color Light-yellow (Yellow) Urine Clarity Clear (Clear) Urine pH 6.5 (5.0-9.0) Urine Specific Nettie 1.009 (1.001-1.035) Urine Protein Negative (Negative) Urine Ketones Negative (Negative) Urine Blood Negative /uL (Negative) Urine Nitrite Negative (Negative) Urine Bilirubin Negative (Negative) Urine Urobilinogen Normal mg/dL (Negative) Urine Leukocyte Esterase Negative /uL (Negative) Urine RBC 1 /hpf (0 - 3) Urine Microscopic WBC < 1 /HPF (0-3) Urine Squamous Epithelial Cells None seen /hpf (<5) Urine Bacteria None seen /hpf (None Seen) Urine Glucose Normal mg/dL (Normal) Lactic Acid Level 1.1 mmol/L (0.4-2.0) Test 03/31/25 02:49 Prothrombin Time 11.1 sec (9.3-11.8) Prothrombin Time INR 1.05 (0.9-1.15) Activated Partial Thromboplast Time 29.7 SEC (24.5-34.5) Total Bilirubin 0.8 mg/dL (0.2-1.0) Aspartate Amino Transferase (AST) 28 U/L (13-40) Alanine Aminotransferase (ALT) 26 U/L (7-40) Alkaline Phosphatase 94 U/L (46-116) Total Protein 8.3 g/dL (5.7-8.2) Albumin 5.0 g/dL (3.2-4.8) Lipase 30 U/L (12-53) Other Laboratory Tests 04/01/25 05:54 Brief Hx & Hospital Course: 64-year-old male past medical history of left inguinal hernia presents with complaints constipation and 5 days. Patient also endorsing abdominal pain. Patient states last bowel movement was morning. Bowel movement was small. During the emergency department evaluation CBC is unremarkable. CMP is unremarkable. Lactic acid 1.1. CT of the abdomen and pelvis impression reads high-grade partial small bowel obstruction with transition point in the left inguinal hernia. Prominent upstream distention most significant of the stomach. Enteric decompression and further follow up are recommended. Correlate for bowel produce ability and clinical signs of incarceration. Prostatomegaly. At this time patient denies fevers, chills, dizziness, shortness of breath, chest pain, palpitations, nausea, vomiting, hematemesis, hematochezia, melena. No previous cardiac history. Patient is admitted and evaluated by general surgeon on-call. Patient had NG tube which was subsequently removed. His small-bowel follow-through study did not show any obvious obstruction. He is tolerating soft diet. In terms of his inguinal hernia felt he needs outpatient follow up with surgeon for elective surgery. This is discussed with the patient at length. Otherwise while in the hospital patient's symptoms resolved and given he is feeling better back to baseline normal status he has been discharged home in stable condition. He is advised to follow up with the his surgeon outpatient for elective left inguinal hernia surgery. I have talked with the patient regarding hospital diagnosis, treatment he received, CT as well as abdominal x-ray results, discharge medications, discharge instructions and follow-up plan of care. He has verbalized understanding of these and agree with the care plan as outlined. Consults/Reason for consult Assessment/Plan A: 1. Reducible left inguinal hernia 2. resolved small bowel obstruction P: 1. stable from surgery POV. 2. recommend f/u with his private surgeon for elective LIH repair Plan discussed with: Patient JEANNA GUERRERO MD Apr 01, 2025 11:28 Operations or Procedures Exam: CT CT AB PEL WO CON-NO ORAL OR IV History: abd pain Comparison Study: CT CT AB PEL WO CON-NO ORAL OR IV on DOS: 01/16/25 Technique: Multidetector spiral CT of the abdomen was performed from lung bases to pubic symphysis. Imaging was performed without IV contrast. Axial, coronal and sagittal multiplanar reformats were obtained from the axial data set by the technologist. Radiation Dose : 1. Abdomen/Pelvis: CTDIvol 5.07 mGy, DLP 3.92 mGy*cm. Findings: Evaluation of solid organs is limited due to lack of intravenous contrast use. Lung Bases: Unremarkable. Liver: Unremarkable. Gallbladder and Biliary Tree: Unremarkable Pancreas: Unremarkable. Spleen: Unremarkable Adrenal Glands: Unremarkable Kidneys/Ureters: No urinary stone or obstruction. Bladder: Grossly unremarkable for degree of distention. Pelvic Organs: Prostatomegaly. Bowel: Significant dilation of the stomach and proximal to mid small bowel, with transition point in the left inguinal canal. The more distal small bowel is decompressed. No evidence of appendicitis. Moderate colonic stool burden. Vasculature: Unremarkable. Lymphadenopathy: No obvious adenopathy. Peritoneum: Mild pelvic ascites likely reactive to bowel obstruction. No free air or obvious fluid collection. Abdominal Wall: Small bowel containing left inguinal hernia with transition point as above. Musculoskeletal: No acute findings. Mild degenerative change of the spine. IMPRESSION: 1. At least high-grade partial small-bowel obstruction with transition point in the left inguinal hernia. Prominent upstream distention most significant of the stomach. Enteric decompression and further follow-up are recommended. Correlate for bowel reducibility and clinical signs of incarceration. 2. Prostatomegaly. Radiation optimization: All CT scans at this facility use at least one of these dose optimization techniques: automated exposure control mA and/or kV adjustment per patient size (includes targeted exams where dose is matched to clinical indication) or iterative reconstruction. Condition at Discharge: Stable Final Diagnosis/Problems List 1. Reducible left inguinal hernia 2. resolved small bowel obstruction Discharge Disposition: Home Discharge Instruct/Medications Diet: Consistent carbohydrate, Cardiac 2g Na,low cholest Activity: No Restrictions, As Tolerated Follow Up/Referral: Primary care physician and referral to Dr. Evan Leblanc surgeon for elective inguinal hernia surgery Medications: As prescribed and home medications Scheduled Midodrine HCl (Midodrine HCl), 5 MG PO BID Senna (Senna), 8.6 MG PO QPM Durable Medical Equipment Misc. Devices (Blood Pressure Monitor), EA XX DAILY, (DME) Discharge Statement: "Patient was advised to return to the ER or call 911 if any headaches, dizziness, shortness of breath, chest pain, abdominal pain, bleeding, fevers, or worsening of medical condition. Patient was counseled about treatment plan, medications, possible side effects, patientverbalized understanding. All questions were answered to the best of my ability. This discharge took greater then 30 minutes in planning, reviewing documentation, counseling the patient, and discussing with other team members." ASSESSMENT ASSESSMENT Assessment 1. Reducible left inguinal hernia 2. resolved small bowel obstruction YONATAN WALTERS MD Apr 01, 2025 17:05
[2025-04-01 17:38] VITALS: BP 102/62; PULSE 54; RESP 20; TEMP 97.6; O2SAT 100
== END 2025-04-01 18:42 | disposition home or self-care (01) | DRG 389 ==
LOC: ER 02:18 → OVERFLOW 06:21 → WEST WING 12:44
PROVIDERS: ADMIT Nurse Practitioner Family; ATTEND Nurse Practitioner Family
PROC: 0D9670Z Drainage of Stomach with Drainage Device, Via Natural or Artificial Opening (ICD-10-PCS; principal; 2025-03-31)
DX: K56.600 Partial intestinal obstruction, unspecified as to cause (principal); K40.30 Unilateral inguinal hernia, with obstruction, without gangrene, not specified as recurrent; Z82.3 Family history of stroke; Z79.899 Other long term (current) drug therapy
CPT/HCPCS: 36415; 71045; 74176; 74250; 80048; 80053; 81001; 82962; 83605; 83690; 85025; 85610; 85730; 96361; 96374; G0378; J2405; J2543